=== PATIENT | male | born 1965 | race Caucasian/White ===

== ENCOUNTER 2018-10-26 14:42 | Inpatient (IN) ==
[2018-10-26] MEDS ORDERED: TYLENOL PO ONE (15:06)
[2018-10-26 15:24] LABS: HEMATOCRIT 35.3 % (42.0-52.0); HEMOGLOBIN 12.8 g/dL (14.0-18.0); LYMPH% 9.2 % (20.5-51.1); MCH 27.1 PG (27-31); MCHC 36.3 g/dL (33-37); MCV 74.6 FL (81-99); MONO% 7.2 % (1.7-9.3); NEUT% 81.1 % (42.2-75.2); PLT 338 X1000 (130-400); RBC 4.73 XMIL (4.7-6.1); RDW 14.4 % (11.5-14.5)
[2018-10-26 15:25] LABS: BASO# 0.01 X1000 (0.0-0.2); BASO% 0.1 % (0.0-0.8); EOS# 0.14 X1000 (0.0-0.7); EOS% 1.9 % (0.0-10.0); IMM GRAN# 0.04 X1000 (0.0-0.04); IMM GRAN% 0.5 % (0.0-0.5); LYMPH# 0.69 X1000 (1.2-3.4); MONO# 0.54 X1000 (0.11-0.59); NEUT# 6.08 X1000 (1.4-6.5)
[2018-10-26 15:28] LABS: BILIRUBIN URINE 1+ (NEGATIVE); BLOOD URINE 4+ (NEGATIVE); CLARITY VERY CLOUDY (CLEAR); COLOR AMBER; KETONE URINE 1+(Small) mg/dL (NEGATIVE); LEUKOCYTES URINE 1+ (NEGATIVE); NITRITE URINE POSITIVE (NEGATIVE); PH URINE 6.5; PROTEIN URINE 2+(100 mg/dL) mg/dL (NEGATIVE); UROBILINOGEN URINE 1 mg/dL
[2018-10-26 15:36] LABS: CALCIUM 7.3 mg/dL (8.8-10.2); CREATININE 3.4 mg/dL (0.7-1.2); TOTAL BILIRUBIN 0.8 mg/dL (0.20-1.00); TOTAL PROTEIN 5.8 g/dL (6.3-8.3)
--- NOTE | 2018-10-26 15:41 | Diag Imaging Result Doc PS360 ---
EXAM: CHEST-1 VIEW 10/26/2018 HISTORY: sepsis TECHNIQUE: AP at 1540 COMMENT: There is a left pleural effusion which has decreased markedly in volume since the previous study of 10/21/2018. There is also less atelectasis or pneumonia and portions of the hemidiaphragm and left heart border are now visible. The right pleural effusion has also diminished as has the atelectasis in the right base. IMPRESSION: Improved pleural effusions and basilar atelectasis versus pneumonia. Electronically signed by Dano Chin 10/26/2018 3:39 PM
[2018-10-26 15:59] LABS: CK INDEX 0.7 (0.0-2.5); CK-MB 10.24 ng/mL (0.0-5.0)
[2018-10-26 16:04] LABS: INR 1.37; PROTIME 17.6 Seconds (11.0-16.0)
[2018-10-26 16:06] LABS: URINE BACTERIA 2+ /HFP; URINE EPITHELIAL CELLS >10 /HPF (<10); URINE RBC 20-40 /HPF (<10); URINE YEAST NONE SEEN /HPF
[2018-10-26 16:07] LABS: URINE CAST NONE SEEN /LPF; URINE CRYSTAL NONE SEEN /HPF; URINE SOURCE CLEAN CATCH
--- NOTE | 2018-10-26 16:08 | PROVIDER DOCUMENTATION ---
This chart was entered by Kelly Bragg Scribe, acting as scribe for Enmanuel Mejia MD. HPI-General Adult - General Chief Complaint: SEPSIS ALERT - P Stated Complaint: hurting all over Time Seen by Provider: 10/26/18 15:00 Source: patient, family, EMS Allergies/Adverse Reactions: Patient Allergies Allergy/AdvReac Type Severity Reaction Status Date / Time ziprasidone [From Geodon] AdvReac NAUSEA/VOMI Verified 10/26/18 14:51 TING Home Medications: Home Medication List Medication Instructions Recorded Confirmed Last Taken Type Amlodipine [Norvasc] 10 mg PO DAILY 07/08/14 10/26/18 10/23/18 05:30 History Lisinopril 20 mg PO DAILY 07/08/14 10/26/18 10/23/18 05:30 History Omeprazole 20 mg PO AC 07/08/14 10/26/18 10/23/18 05:30 History SIMVAstatin [Zocor] 40 mg PO HS 07/08/14 10/26/18 10/23/18 05:30 History Clonidine [Catapres] 1 tab PO TID 10/23/18 10/26/18 10/23/18 05:30 History Aspirin EC 1 tab PO DAILY 10/26/18 10/26/18 Unknown History Hydralazine HCl 1 tab PO TID 10/26/18 10/26/18 Unknown History Levofloxacin 1 tab PO DAILY 10/26/18 10/26/18 Unknown History Metformin HCl 1 tab PO BID 10/26/18 10/26/18 Unknown History Metoprolol Succinate E.r. [Toprol 1 tab PO BID 10/26/18 10/26/18 Unknown History Xl] Sitagliptin Phosphate [Januvia] 1 tab PO DAILY 10/26/18 10/26/18 Unknown History - History of Present Illness -Gen Adult Nature of Presenting Problems: 53 y/o male presents to ED with cc of "pain all over" onset "a while ago." Pt reports he had pleural effusion with fluid removed on Sunday. Mother of pt states he had pleural effusion because he had pneumonia and never went to the doctor 2 months ago. Pt reports he was unable to get up today. Pt also complains of sores/lesions diffusely. Pt is alert and oriented. Location of Pain/Injury: reports: generalized Pain Radiation: reports: no radiation Quality of Pain: reports: aching Severity: reports: moderate, severe Onset/Duration: reports: unsure ("a while ago") Timing: reports: still present, getting worse Context/Activities at Onset: reports: none Modifying Factors: improves with: nothing Associated Symptoms: reports: rash, other ("pain all over") Similar Symptoms Previously?: No Recently seen or treated by another doctor?: Yes Review of Systems - Adult - REVIEW OF SYSTEMS - ADULT Constitutional: denies: chills, fever Eyes: reports: no symptoms reported Ears, Nose, Mouth & Throat: reports: no symptoms reported Cardiovascular: denies: chest pain, palpitations Respiratory: denies: cough, shortness of breath Gastrointestinal: denies: abdominal pain, diarrhea, nausea, vomiting Genitourinary: reports: no symptoms reported Musculoskeletal: reports: other ("pain all over"). denies: back pain, joint pain Integumentary: reports: rash. denies: itching Neurological: denies: dizziness/vertigo, seizure Psychiatric: reports: no symptoms reported Endocrine: reports: no symptoms reported Hematologic/Lymphatic: reports: no symptoms reported Allergic/Immunologic: reports: no symptoms reported All Other Systems: Reviewed and Negative Past History - Adult - PAST MEDICAL HISTORY-ADULT Review of Records: reports: Old Records Reviewed, Nursing Assessment Review, Medications Reviewed Major Childhood Illnesses: reports: denies history Cardiovascular: reports: HTN, hyperlipidemia Neurological: reports: CVA Psychiatric: reports: psychiatric problems Endocrine/Immune: reports: Diabetes - PRIOR SURGERIES/PROCEDURES Surgical/Procedure History: reports: orthopedic (extremity) (R leg) - IMMUNIZATION STATUS Childhood Immunizations: See Nurse Assessment Flu Vaccine: See Nurse Assessment - FAMILY HISTORY Family History: reviewed, not pertinent - SOCIAL HISTORY Smoking: less than 1 pack/day Provider spent 3-5 mins advising pt. on dangers of tobacco.: Discussed manners to quit use, and f/u contacts for add'l counseling. Substance Use: none/never Alcohol Use Frequency: never Living Situation: family Physical Exam-General - PHYSICAL EXAM-ADULT Initial Vital Signs Reviewed: Yes (nasal cannula in place) - CONSTITUTIONAL General Appearance: appears well, alert, no apparent distress - EYES Eyes: PERRL/EOMI, pink conjunctivae - HEAD, EARS, NOSE, MOUTH & THROAT HENMT: normocephalic/atraumatic, moist mucous membranes, normal ENT inspection - NECK Neck: non-tender, full range of motion - RESPIRATORY Respiratory: chest non-tender, lungs clear, normal breath sounds - CARDIOVASCULAR Cardiovascular: tachycardia - GASTROINTESTINAL (ABDOMEN) Abdominal Exam: normal bowel sounds, non tender, soft - MUSCULOSKELETAL Back Exam: normal inspection, no CVA tenderness, no vertebral tenderness Extremity: normal range of motion, non-tender, swelling (L hand/wrist) - SKIN Integumentary: normal color, warm/dry, swelling (L hand/wrist), other (purple sores to feet, hands, lips, tongue, back, abdomen, legs) - NEUROLOGIC Neurologic: grossly normal - PSYCHIATRIC Psych/Mental Status: normal mood/affect Progress - PLAN OF CARE/RESULTS Progress/Plan/Lab Results: Vital Signs - 8 hr 10/26/18 14:47 10/26/18 15:15 Temperature 101.6 F H Pulse Rate 142 H 141 H Respiratory Rate 21 35 H Blood Pressure 114/77 102/77 O2 Sat by Pulse Oximetry 96 94 L Laboratory Results - last 24 hr 10/26/18 10/26/18 10/26/18 15:00 15:00 15:00 WBC 7.50 RBC 4.73 Hgb 12.8 L Hct 35.3 L MCV 74.6 L MCH 27.1 MCHC 36.3 RDW Std Deviation 14.4 Plt Count 338 MPV 10.0 Immature Gran % (Auto) 0.5 Neut % (Auto) 81.1 H Lymph % (Auto) 9.2 L [place] % (Auto) 7.2 Eos % (Auto) 1.9 Baso % (Auto) 0.1 Immature Gran # (Auto) 0.04 Neut # (Auto) 6.08 Lymph # (Auto) 0.69 L [place] # (Auto) 0.54 Eos # (Auto) 0.14 Baso # (Auto) 0.01 PTT (Actin FS) 37.2 Sodium 129 L Potassium 5.0 Chloride 91 L Carbon Dioxide 16 L Anion Gap 22 BUN 35 H Creatinine 3.4 H Estimated GFR/1.73 m2 19 BUN/Creatinine Ratio 10 Glucose 135 H Calculated Osmolality 269 Calcium 7.3 L Total Bilirubin 0.80 AST 41 H ALT 12 Alkaline Phosphatase 45 Creatine Kinase 1503 H Troponin T Total Protein 5.8 L Albumin 3.0 L Globulin 3.0 Albumin/Globulin Ratio 1.0 Plasma Lactate Urine Color Urine Clarity Urine pH Ur Specific [place] Urine Protein Urine Ketones Urine Blood Urine Nitrite Urine Bilirubin Urine Urobilinogen Urine WBC Urine Glucose 10/26/18 10/26/18 10/26/18 15:00 15:00 15:05 WBC RBC Hgb Hct MCV MCH MCHC RDW Std Deviation Plt Count MPV Immature Gran % (Auto) Neut % (Auto) Lymph % (Auto) [place] % (Auto) Eos % (Auto) Baso % (Auto) Immature Gran # (Auto) Neut # (Auto) Lymph # (Auto) [place] # (Auto) Eos # (Auto) Baso # (Auto) PTT (Actin FS) Sodium Potassium Chloride Carbon Dioxide Anion Gap BUN Creatinine Estimated GFR/1.73 m2 BUN/Creatinine Ratio Glucose Calculated Osmolality Calcium Total Bilirubin AST ALT Alkaline Phosphatase Creatine Kinase Troponin T < 0.010 Total Protein Albumin Globulin Albumin/Globulin Ratio Plasma Lactate 2.8 H Urine Color YASHIRA Urine Clarity VERY CLOUDY A Urine pH 6.5 Ur Specific [place] 1.020 Urine Protein 2+(100 mg/dL) A Urine Ketones 1+(Small) A Urine Blood 4+ Urine Nitrite POSITIVE A Urine Bilirubin 1+ A Urine Urobilinogen 1 Urine WBC 1+ A Urine Glucose TRACE(50 mg/dL) A Orders Category Date Time Status Cardiac Monitoring DIRECTED Care 10/26/18 14:54 Active IV Insertion ORDERED Care 10/26/18 14:54 Completed Notify MD of + Sepsis Screen NOW Care 10/26/18 14:54 Active Notify Physician As Ordered Care 10/26/18 14:54 Active Oxygen Therapy- ED Nursing DIRECTED Care 10/26/18 15:16 Active CHEST-1 VIEW [RAD] Stat Exams 10/26/18 14:54 Completed ABG [RESP] Routine Lab 10/26/18 15:50 Ordered BLOOD CULTURE [BLDCUL] Stat Lab 10/26/18 15:00 Ordered CBC WITH DIFF [HEME] Stat Lab 10/26/18 15:00 Completed CK PROFILE [SP CHEM] Stat Lab 10/26/18 15:00 Results COMPREHENSIVE METABOLIC PANEL [CHEM] Stat Lab 10/26/18 15:00 Results LACTATE, PLASMA [CHEM] Lab 10/26/18 15:00 Completed LACTATE, PLASMA [CHEM] Lab 10/26/18 18:00 Uncollected LACTATE, PLASMA [CHEM] Lab 10/26/18 21:00 Uncollected PROTIME WITH INR [COAG] Stat Lab 10/26/18 15:02 Received PTT [COAG] Stat Lab 10/26/18 15:00 Completed TROPONIN T Stat Lab 10/26/18 15:[address] W/POSS RFLX CULT [URINALYSIS] Stat Lab 10/26/18 15:05 Results Acetaminophen [Tylenol] Med 10/26/18 15:06 Discontinued 1,000 mg PO NOW ONE Oxygen Device Stat Oth 10/26/18 14:54 Active EKG [EKG] Stat Ther 10/26/18 15:04 Ordered Result Diagrams: 10/26/18 15:00 10/26/18 15:00 - EKG 1 Time of EKG reading by physician:: 14:50 EKG Read and Signed by:: Enmanuel Mejia EKG Interpretation (*Must complete 3 of following elements*): Normal Rate: 144 Rhythm: Sinus tachy [place]: normal QRS: normal MT Interval: normal ST Wave: normal - XRAY 1 XRAY Study: Chest Impression: See EMR Report ([facility] - [address] , [address] [address] [facility] - [address] [place] [address] Department of Imaging Patient: ASHLEY CASTELLANOS GENEADM Date: 10/26/18MR#: [id number] : 1965ADM Status: PRE ERAcct#: [id number] Age/Sex: 53/MRoom/Bed: Loc: P.ED Ordering Physician: Enmanuel Mejia MD Family Physician: Rajeev Machado MD Reason for Procedure: sepsis Signed EXAM: CHEST-1 VIEW 10/26/2018 HISTORY: sepsis TECHNIQUE: AP at 1540 COMMENT: There is a left pleural effusion which has decreased markedly in volume since the previous study of 10/21/2018. There is also less atelectasis or pneumonia and portions of the hemidiaphragm and left heart border are now visible. The right pleural effusion has also diminished as has the atelectasis in the right base. IMPRESSION: Improved pleural effusions and basilar atelectasis versus pneumonia. Electronically signed by Dano Chin 10/26/2018 3:39 PM 10/26/18 1539 Interpreting Physician: Dano Chin MD Dictated Date/Time: 10/26/18 1537 cc: Enmanuel Mejia MD; Rajeev Machado MD) - CT/MRI 1 CT Study: Thorax Impression: See EMR Report ([facility] - [address] [facility] [address] [address], [address], [place] [address] [facility] - [address] [place] [address] Department of Imaging Patient: ASHLEY CASTELLANOS GENEADM Date: 10/26/18#: [id number] : 1965ADM Status: REG ERAcct#: [id number] Age/Sex: 53/MRoom/Bed: Loc: P.ED Ordering Physician: Reza Simons MD Family Physician: Rajeev Machado MD Reason for Procedure: pna, pleural effusion Signed EXAM: CT THORAX W/O CONTRAST 10/26/2018 HISTORY: pna, pleural effusion TECHNIQUE: This exam was performed using automated exposure control, adjustment of mA or kV according to patient size, and/or use of iterative reconstruction technique. COMMENT: There are bilateral pleural effusions. There is a pericardial effusion which measures a centimeter in thickness anteriorly. The pericardial effusion is larger than it was on 10/23/2018, the pleural effusions have decreased in size particularly the left effusion. There is atelectasis in the left lower lobe. The possibility of pneumonia cannot be entirely excluded. There is minimal platelike atelectasis in the posterior right lower lobe. The regional skeleton and visualized portions of the abdomen are stable in appearance. IMPRESSION: Improved pleural effusions. Worsened pericardial effusion. Atelectasis versus pneumonia left lower lobe. Electronically signed by Dano Chin 10/26/2018 5:00 PM 10/09 1700 Interpreting Physician: Dano Chin MD Dictated Date/Time: 10/26/18 1658 cc: Reza Simons MD; Rajeev Machado MD) - CONSULTS/PCP/HOSPITALIST Notification #1 *Consult/PCP/Hospitalist*: Dr. Simons Time Discussed: 15:56 Reason/Comments: Pleural effusion; pneumonia; sepsis Consult Disposition: Admit Departure - Departure Date of Disposition Decision: 10/26/18 Time of Disposition Decision: 16:41 DIAGNOSIS: Pleural effusion, Rash, History of recent pneumonia, Febrile illness, Tobacco use UTI (urinary tract infection) Qualifiers: Urinary tract infection type: site unspecified Hematuria presence: with hematuria Qualified Code(s): N39.0 - Urinary tract infection, site not specified; R31.9 - Hematuria, unspecified COPD (chronic obstructive pulmonary disease) Qualifiers: COPD type: unspecified COPD Qualified Code(s): J44.9 - Chronic obstructive pul monary disease, unspecified CKD (chronic kidney disease) Qualifiers: Chronic kidney disease stage: unspecified stage Qualified Code(s): N18.9 - Chronic kidney disease, unspecified Schizophrenia Qualifiers: Schizophrenia type: unspecified Qualified Code(s): F20.9 - Schizophrenia, unspecified Disposition: ADMITTED INPATIENT 09 Certified Medical Emergency: Emergent Condition: Stable Referrals and Follow-Ups: Rajeev Machado MD [Primary Care Provider] - Discharge Education: Steps to Quit Smoking, [id number] - Critical Care Note This patient required my direct & personal management of CC.: No Attestation - Physician/ KARTHIKEYAN Attestation Patient care was provided by Advanced Practice Provider:: No The physician spent face to face time with patient:: Yes Advanced Practice Provider documentation review:: Supervising physician onsite and consulted in the evaluation and care of this patient. The physician did have a face to face encounter with the patient. This chart was documented by the indicated scribe, (Kelly Bragg, Link) and accurately reflects the services I performed and decisions made by me, Enmanuel Mejia MD, as attested by the provider's signature.
[2018-10-26 16:17] LABS: BE -5.2 mmoll (-3.0-3.0); BLOOD TYPE ARTERIAL; HCO3-(ACT) 20.8 mmoll (20.0-26.0); METHB 0.9 % (0.0-1.5); O2(CT) 15.5 mL/dL (15.0-23.0); O2HB 94.7 % (95.0-99.0); PCO2(98.6) 24 mmHg (35-45); PO2(98.6) 87 mmHg (60-100); SAMPLE BLOOD; SAO2 97.5 % (95.0-100.0); THB 11.6 g/dL (11.5-17.4); pH(98.6) 7.46 (7.35-7.45)
[2018-10-26 16:21] LABS: ALLEN TEST YES; MODALITY CANNULA
[2018-10-26] MEDS: NS 1,000 ML IV SCH ×2 (16:21→23:40)
[2018-10-26] MEDS: SOLU-MEDROL IV SCH ×2 (16:23→23:42)
[2018-10-26] MEDS: ZYVOX 600 MG/D5W 600 MG/300 ML IVPB IV SCH (16:29)
[2018-10-26] MEDS: ZOSYN 2.25 GM in NS 50 ML IV SCH ×2 (16:32→23:40)
--- NOTE | 2018-10-26 17:02 | Diag Imaging Result Doc PS360 ---
EXAM: CT THORAX W/O CONTRAST 10/26/2018 HISTORY: pna, pleural effusion TECHNIQUE: This exam was performed using automated exposure control, adjustment of mA or kV according to patient size, and/or use of iterative reconstruction technique. COMMENT: There are bilateral pleural effusions. There is a pericardial effusion which measures a centimeter in thickness anteriorly. The pericardial effusion is larger than it was on 10/23/2018, the pleural effusions have decreased in size particularly the left effusion. There is atelectasis in the left lower lobe. The possibility of pneumonia cannot be entirely excluded. There is minimal platelike atelectasis in the posterior right lower lobe. The regional skeleton and visualized portions of the abdomen are stable in appearance. IMPRESSION: Improved pleural effusions. Worsened pericardial effusion. Atelectasis versus pneumonia left lower lobe. Electronically signed by Dano Chin 10/26/2018 5:00 PM
--- NOTE | 2018-10-26 17:24 | EKG Report ---
Test Performed on : 10/26/2018 2:50:41 PM Test Reason : pain Blood Pressure : / mmHG Vent. Rate : 144 BPM Atrial Rate : 144 BPM P-R Int : 114 ms QRS Dur : 076 ms QT Int : 290 ms P-R-T Axes : 075 069 068 degrees QTc Int : 449 ms Sinus tachycardia. Otherwise normal ECG When compared with ECG of 11-JUL-2014 01:27, No significant change was found Unconfirmed Result
[2018-10-26] MEDS ORDERED: TYLENOL PO PRN (17:42)
[2018-10-26] MEDS ORDERED: ZOFRAN IV PRN (17:42)
[2018-10-26 17:57] LABS: UR CREAT RANDOM 224.6 mg/dL (14-26)
[2018-10-26 18:16] LABS: IRON SATURATION 9 %; TIBC 109 ug/dL; TOTAL IRON 10 ug/dL (53-167); UNBOUND IRON 99 ug/dL (112-346)
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
[2018-10-26 18:46] LABS: FREE T4 1.2 ng/dL (0.93-1.70); TSH 2.8 uIUmL (0.27-4.20)
[2018-10-26] MEDS: ATROVENT NEB INH SCH ×2 (19:42→23:20)
[2018-10-26] MEDS: MUCOMYST 20% INH SCH (19:42)
[2018-10-26] MEDS: HUMULIN R (PARKWAY) SUBQ SCH (20:29)
[2018-10-26] MEDS: LOPRESSOR PO SCH (20:29)
[2018-10-26] MEDS ORDERED: ZOCOR PO SCH (21:00)
[2018-10-26 21:32] LABS: D-DIMER > 20.00 ug/mLFEU (0.0-0.52)
[2018-10-27] MEDS: ATROVENT NEB INH SCH ×6 (03:32→23:13)
[2018-10-27] MEDS: ZOSYN 2.25 GM in NS 50 ML IV SCH ×4 (04:04→21:39)
[2018-10-27] MEDS: PRILOSEC PO SCH ×2 (05:07→06:11)
[2018-10-27] MEDS: ZYVOX 600 MG/D5W 600 MG/300 ML IVPB IV SCH ×2 (05:07→17:26)
[2018-10-27 06:08] LABS: INR 1.43; PROTIME 18.6 Seconds (11.0-16.0)
[2018-10-27 06:09] LABS: PTT 40.8 Seconds (22.3-41.8)
[2018-10-27] MEDS: NS 1,000 ML IV SCH ×3 (06:11→21:39)
[2018-10-27] MEDS: HUMULIN R (PARKWAY) SUBQ SCH ×4 (06:11→21:39)
[2018-10-27 06:15] LABS: EOS# 0.15 X1000 (0.0-0.7); EOS% 2.9 % (0.0-10.0); HEMATOCRIT 26.7 % (42.0-52.0); HEMOGLOBIN 9.5 g/dL (14.0-18.0); IMM GRAN# 0.08 X1000 (0.0-0.04); IMM GRAN% 1.6 % (0.0-0.5); LYMPH# 0.35 X1000 (1.2-3.4); LYMPH% 6.9 % (20.5-51.1); MCH 26.8 PG (27-31); MCHC 35.6 g/dL (33-37); MCV 75.4 FL (81-99); MONO# 0.24 X1000 (0.11-0.59); MONO% 4.7 % (1.7-9.3); NEUT# 4.27 X1000 (1.4-6.5); NEUT% 83.9 % (42.2-75.2); PLT 227 X1000 (130-400); RBC 3.54 XMIL (4.7-6.1); RDW 14.3 % (11.5-14.5); WBC 5.09 X1000 (4.8-10.8)
[2018-10-27 06:42] LABS: ALB/GLOB RATIO 0.7; CALCIUM 6.2 mg/dL (8.8-10.2); CREATININE 3.1 mg/dL (0.7-1.2); TOTAL BILIRUBIN 0.42 mg/dL (0.20-1.00); TOTAL PROTEIN 4.9 g/dL (6.3-8.3)
[2018-10-27 06:43] LABS: MAGNESIUM 0.7 mg/dL (1.5-2.7)
[2018-10-27 07:17] LABS: ANISOCYTOSIS 1+; LYMPHS 17 % (21-51); MONO 4 % (1-9); SEGS 79 % (42-75)
[2018-10-27] MEDS: MUCOMYST 20% INH SCH ×2 (07:24→19:18)
[2018-10-27] MEDS ORDERED: CALCIUM GLUCONATE 2 GM in NS 100 ML IV ONE (08:00)
[2018-10-27] MEDS: ASPIRIN EC PO SCH (08:24)
[2018-10-27] MEDS: LOPRESSOR PO SCH ×2 (08:24→21:39)
[2018-10-27] MEDS: SOLU-MEDROL IV SCH ×2 (08:24→16:11)
[2018-10-27] MEDS ORDERED: MAGNESIUM SULFATE 4 GM/S.W.I. 4 GM/100 ML IVPB IV ONE (09:00)
--- NOTE | 2018-10-27 10:57 | Diag Imaging Result Doc PS360 ---
EXAM: US RENAL 2 (RETROPER) COMPLETE 10/27/2018 HISTORY: leah TECHNIQUE: Renal ultrasound COMMENT: The kidneys are markedly hyperechoic. There is no evidence of hydronephrosis or mass. There are jets seen in the urinary bladder on color Doppler. The bladder is otherwise unremarkable. The right kidney is 11.6 x 5 x 4.5 cm the left is 11.1 x 5.5 x 5.4 cm. IMPRESSION: No evidence of obstructive uropathy. The possibility of medical renal disease is suspected. Electronically signed by Dano Chin 10/27/2018 10:55 AM
--- NOTE | 2018-10-27 17:01 | PROGRESS NOTE ---
DATE: 10/27/2018 Patient was sent over here from [facility] yesterday. PCP: Rajeev Machado MD A 53-year-old white male with medical history of schizophrenia, hypertension, hyperlipidemia, diabetes mellitus type 2, and COPD. Very poor dentition. Most recently treated for pneumonia, also for left large pleural effusion. On 10/23/2018, sent by his primary care Dr. Machado, to have CT-guided left thoracentesis where 1.8 L of fluid was removed. Pleural fluid was sent for routine cultures. Did not show any growth at that time. He has been short of breath for 2 months. His mother brought him in. She is the principal caregiver and takes care of schizophrenia, and he lives with her. He has been struggling with breathing for a couple of months, but since his thoracentesis was having some blood, coughing up a little blood and threw up black colored emesis 2 or 3 days before this admission. None since that time. He has had fever and chills and dizziness, shortness of breath, and tachycardia. White count was normal. Noted some petechia and rashes on the backside, large bruise behind his right hip, swelling in the right arm, right leg, and he had a fall apparently a day before. Tender on the right upper and lower extremities as well and still feels like he is having hemoptysis. I see that he has been throwing up, but it appears to be dark color by mother's report. PAST MEDICAL HISTORY: 1. Hypertension. 2. Hyperlipidemia. 3. Diabetes mellitus type 2. 4. COPD. 5. Acute schizophrenia. 6. Very poor dentition. They were planning on starting pulling teeth. He has about 9 teeth that need to be pulled out, and they were going to start that this week. 7. Recent pneumonia, bilateral pleural effusions. So admitted for: 1. Sepsis, pneumonia, and possible urinary tract infection. White count was normal. Lactate was elevated. Fluid resuscitation for sepsis protocol was followed, but was diminished because of risk of his already present pleural effusion, and so they are going to follow up with CT of the chest. He is on Zosyn and Zyvox. 2. Pneumonia recently, bilateral pleural effusions. Removed 1.8 L from left lung on 10/23/2018. So follow up CT. 3. Purpura like rash. He has these risings noted on his legs and his back. He has a large bruise in the right hip above the buttock. I think the plan was to get venous ultrasound and check an MARY and hypercoagulable state and get IgG levels. 4. Acute kidney injury with rhabdomyolysis. Giving normal saline. Hydrate well. Follow his CKs. 5. Diabetes mellitus type 2. Continue to follow blood sugars. Put on sliding scale. 6. Hypertension. Follow blood pressures heat. He takes regular metoprolol 25 mg twice a day. They are going to hold the Catapres, hydralazine, lisinopril, Norvasc due to his acute kidney injury. 7. Hyperlipidemia. 8. Questionable hemoptysis versus hematemesis. Watch his blood count. He said around the time he had his thoracentesis this seemed to have stopped. He does have anemia. 9. Chronic anemia. 10. Urinary tract infection suspected, treating. 11. Deep venous thrombosis prophylaxis. 12. Acute kidney injury. LABORATORY DATA: Review of his labs. CBC on admission: White count 7500, hematocrit 35, platelet count 338,000, and today's white count was 5090, hematocrit 26, hemoglobin 9.5, platelet count 227,000. Sodium 132, potassium 4.0, chloride 97, BUN 43, creatinine 3.1. Creatinine when he came in was 3.4. Looking back, his creatinine was 1.1 in June of this year and 1.2 in October of this year. So feel like this is acute kidney injury. A variety of studies have been sent. I am going to ask Dr. Carbajal to follow. Dr. García is on the case already. cc: Eris Mendoza MD
[2018-10-27 18:30] LABS: RETIC% 0.96 % (0.8-2.1); RETIC-HE 24.1 PG (28.2-36.6)
--- NOTE | 2018-10-27 18:45 | Diag Imaging Result Doc PS360 ---
EXAM: CHEST-2 VIEWS 10/27/2018 HISTORY: effusion TECHNIQUE: PA and lateral chest COMMENT: There are bilateral effusions left greater than right. The quantity of fluid on both sides appears greater than on 10/26/2018. There is increased atelectasis or pneumonia in the left lower lobe. The inspiration is less optimal. IMPRESSION: Worsened bilateral effusions. Electronically signed by Dano Chin 10/27/2018 6:42 PM
--- NOTE | 2018-10-27 21:08 | PULMONOLOGY CONSULTATION ---
DATE: 10/27/2018 REQUESTING PHYSICIAN: Dr. Simons. REASON FOR CONSULTATION: Pneumonia. HISTORY OF PRESENT ILLNESS: Mr. Newman is a 53-year-old white male who is a very difficult historian due to schizophrenia. His chart has been reviewed. The patient has had an illness which began approximately 2 months ago. The patient has had increasing shortness of breath and CT scan has revealed bilateral pleural effusions. The patient did undergo a CT-guided thoracentesis 10/23/2018. Initial fluid was exudative in character and negative for growth. Hopefully, cytology is pending. The patient has developed some cough or emesis with bloody secretions. He has had some fevers and chills and has developed bruising on the lower extremities, his back and buttocks. He presented to the emergency room due to generalized pain and shortness of breath. Review of his labs indicates he has developed a microcytic anemia. His D-dimer was greater than 20 and his fibrin level is elevated. He has developed new onset renal failure and his urinalysis indicates nitrates, ketones and he is spilling protein with 4+ blood. PAST MEDICAL HISTORY: 1. Chronic obstructive pulmonary disease. 2. Schizophrenia. 3. Hypertension. 4. Type 2 diabetes mellitus. 5. Dyslipidemia. 6. Poor dentition. 7. History of left leg fracture. SOCIAL HISTORY: The patient has been smoking since the age of 10. No alcohol or illicit drug use noted. He lives with his mother. FAMILY HISTORY: Positive for strokes, heart disease and diabetes. REVIEW OF SYSTEMS: Limited but is as noted in the HPI. PHYSICAL EXAMINATION: General: Reveals a chronically ill-appearing male with some bruising noted on his legs anteriorly. When he rolls over, he has significant bruising on his back and some apparent deep tissue injury over the spine. BP 132/76, heart rate 102, respiratory rate 16, oxygen saturation 100%. He was 101.6 degrees on presentation but has subsequently been afebrile. Oxygen saturation 100% on Venturi mask. HEENT: Pupils are equal and reactive. Oropharynx is clear. Neck: Supple Chest: Reveals diminished breath sounds bilaterally without wheezing or rhonchi. Cardiac: S1, S2. Abdomen: Soft. Extremities: Reveal some swelling of the right hand without cyanosis. The right arm is not significantly swollen. Skin: As noted in the HPI. Please see photographs in the chart. LABORATORIES: CT scan of the thorax is reviewed, reveals bilateral pleural effusions. The effusion on the left has decreased compared to prior CT scan 4 days ago but pericardial infusion has increased in size. Minimal atelectasis in the left base without definite mass identified. White blood count 5.09, hemoglobin 9.5, platelet count 225,000, sedimentation rate 70, reticulocyte count 0.096. INR 1.43, fibrinogen 707, D-dimer greater than 20, sodium 132, potassium 4.0, chloride 97, carbon dioxide 16, BUN 43, creatinine 3.1, calcium 6.2, magnesium 0.7. Arterial blood gas on 2 L per nasal cannula, pH 7.46, pCO2 of 24, PO2 of 87. IMPRESSION: 53-year-old with 1. Chronic obstructive pulmonary disease. 2. Acute hypoxemic respiratory failure. 3. Exudative pleural effusions. 4. Hemoptysis. 5. Microcytic anemia. 6. Purpuric rash. 7. Vasculitis. 8. Acute renal failure. DISCUSSION: This is a 53-year-old with complicated illness as outlined above. Etiology for his current presentation is not completely clear. The patient does not have specific etiology in the chest to explain current presentation. He does have an apparent vasculitis with purpura, elevated sedimentation rate, acute renal failure and marked increase in D-dimer. Etiology is currently being evaluated. This could represent a [place] vasculitis. The patient has been on hydralazine. His current presentation could also be related to a drug-induced lupus vasculitis. He has extensive labs ordered to evaluate him for connective tissue diseases, HIV, hypercoagulable workup, hepatitis. RECOMMENDATION: 1. Agree with current workup. 2. Agree with Nephrology consultation. 3. Recommend wound care consult. He is at risk for skin breakdown/ulceration over his spine where he has purpura along with a pressure area of concern. 4. Additional recommendations pending hospital course. cc: Chandler García MD
[2018-10-28] MEDS: SOLU-MEDROL IV SCH ×3 (01:05→16:05)
[2018-10-28] MEDS: ATROVENT NEB INH SCH ×6 (03:03→22:45)
[2018-10-28] MEDS: NS 1,000 ML IV SCH ×4 (04:38→18:01)
[2018-10-28] MEDS: ZOSYN 2.25 GM in NS 50 ML IV SCH ×5 (04:38→21:37)
[2018-10-28 05:44] LABS: EOS# 0.04 X1000 (0.0-0.7); EOS% 0.5 % (0.0-10.0); HEMOGLOBIN 9.4 g/dL (14.0-18.0); IMM GRAN# 0.09 X1000 (0.0-0.04); IMM GRAN% 1.1 % (0.0-0.5); LYMPH# 0.27 X1000 (1.2-3.4); LYMPH% 3.4 % (20.5-51.1); MCH 26.4 PG (27-31); MCHC 34.8 g/dL (33-37); MCV 75.8 FL (81-99); MONO# 0.41 X1000 (0.11-0.59); MONO% 5.2 % (1.7-9.3); MPV 9.9 FL (7.4-10.4); NEUT# 7.03 X1000 (1.4-6.5); NEUT% 89.8 % (42.2-75.2); PLT 265 X1000 (130-400); RBC 3.56 XMIL (4.7-6.1); RDW 14.3 % (11.5-14.5); WBC 7.84 X1000 (4.8-10.8)
[2018-10-28] MEDS: ZYVOX 600 MG/D5W 600 MG/300 ML IVPB IV SCH ×2 (06:03→16:06)
[2018-10-28] MEDS: PRILOSEC PO SCH (06:03)
[2018-10-28] MEDS: HUMULIN R (PARKWAY) SUBQ SCH ×3 (06:03→16:05)
[2018-10-28 06:08] LABS: ALB/GLOB RATIO 0.7; ALBUMIN 2.3 g/dL (3.5-5.0); CALCIUM 7.1 mg/dL (8.8-10.2); CREATININE 2.4 mg/dL (0.7-1.2); PHOSPHORUS 4.9 mg/dL (2.7-4.5); POTASSIUM 3.5 mmol/L (3.5-5.1); TOTAL BILIRUBIN 0.26 mg/dL (0.20-1.00); TOTAL PROTEIN 5.5 g/dL (6.3-8.3)
[2018-10-28 07:37] LABS: BANDS 4 % (0-1); LYMPHS 3 % (21-51); MONO 2 % (1-9); SEGS 90 % (42-75)
[2018-10-28] MEDS: MUCOMYST 20% INH SCH ×2 (07:56→19:13)
--- NOTE | 2018-10-28 07:59 | ECHO REPORT ---
ORDER DATE: 10/27/2018 INTERPRETING PHYSICIAN: Dr. Nj REQUESTING PHYSICIAN: CLINICAL INDICATIONS: This is a 53-year-old male with question of CHF, dyspnea. M-MODE MEASUREMENTS: Right ventricle: cm. Left ventricle end diastole: 4.5 cm. Left ventricle end systole: 2.9 cm. Posterior wall: 1.9 cm. Interventricular septum: 0.9 cm. Left atrium: 3.5 cm. Aortic root: 2.9 cm. SUMMARY OF 2-DIMENSIONAL IMAGIN. The study was somewhat difficult. Optison was added to optimize visualization of the endocardium. 2. The left ventricular function is normal. Ejection fraction was estimated to be in the range of 60% to 65%. There is no wall motion abnormality noted. 3. Right ventricle appears to be normal. 4. Aortic valve looks normal. Color flow mapping is unremarkable. 5. Mitral valve looks normal. Color flow mapping is unremarkable. 6. Pulse wave Doppler of mitral inflow shows mild reversal of the E and the A ratio. The ratio is 0.8. 7. Tissue Doppler of septal and lateral mitral annulus averages 9 cm. 8. The pulmonary venous flow is normal. 9. There is no diastolic dysfunction. 10.Tricuspid valve shows mild degree of regurgitation. 11.Pulmonary pressure is estimated at 30 mmHg. 12.Pulmonic valve is normal. Color flow mapping is unremarkable. 13.There is no pericardial effusion, masses or thrombus. CONCLUSIONS: In summary, this study shows: 1. Normal left ventricular systolic function. Optison was added to optimize visualization of endocardium. 2. Normal diastolic function. 3. No evidence of any significant valvular abnormality. 4. No pulmonary hypertension. Clinical correlation is recommended. cc: MD Liliya Lewis CRNP
[2018-10-28] MEDS: LOPRESSOR PO SCH ×2 (08:55→21:06)
[2018-10-28] MEDS: ASPIRIN EC PO SCH (08:55)
--- NOTE | 2018-10-28 10:02 | Diag Imaging Result Doc PS360 ---
EXAM: CHEST-2 VIEWS HISTORY: abnormal exam TECHNIQUE: Chest two views COMPARISON: 10/27/2018 FINDINGS: Poor inspiratory effort. There are small to moderate-sized bilateral pleural effusions similar to the prior study. There is bibasilar atelectasis. No cardiomegaly. No pulmonary edema. IMPRESSION: No interval improvement. Electronically signed by Adam Medina 10/28/2018 10:00 AM
--- NOTE | 2018-10-28 10:13 | PROGRESS NOTE ---
DATE: 10/28/2018 SUBJECTIVE: Mr. Newman says he feels a little better. He has purpuric lesions on his fingers, both hands, on his back, on his proximal thighs and it is suspicious for vasculitis. He has some whitish plaque on his gums, left side of his mouth, poor dentition. He was in the process of going to get some teeth pulled when he started feeling bad. OBJECTIVE: Temperature 98.1 degrees, pulse 112, respirations 28, blood pressure 141/72. Pupils are equal round. Lungs clear in all lung koenig. Cardiovascular: Regular rhythm and rate without murmur or S3. Abdomen: Soft. Skin: Warm and dry. DATA: Urine output 1300 mL. Blood sugars have been in the low 100s. ASSESSMENT AND PLAN: 1. Purpuric rash. Concerned about some type of vasculitic process with some pleural effusion in his lungs. No discrete pathology identified on CT scan. Dr. García is following. Underlying chronic obstructive pulmonary disease with acute hypoxemic respiratory failure, exudative pleural effusion, hemoptysis, macrocytic anemia. Studies are pending. 2. Acute renal failure. Creatinine this morning is 2.4, which is improved. It was 3.4 when he came in. That is encouraging. Dr. Carbajal has been consulted. 3. Diabetes mellitus type 2. Continue to follow sugars. 4. History of dyslipidemia. 5. History of schizophrenia. 6. Poor dentition. Aware. His mother reports that at present time she cannot take care of him in his condition, so we will look for options of rehab on discharge planning. REVIEW OF ORDERS: He is on Saphris, which is asenapine, 10 mg sublingual at bedtime. This is for his schizophrenia. He is on acetylcysteine breathing treatments, aspirin 81 mg a day, ipratropium bromide 0.5 mg inhalation q.4 hours, methylprednisone 60 mg IV q.8 hours, Lopressor 25 mg p.o. b.i.d., Prilosec 20 mg daily. He is getting normal saline at 150 mL/hour. He is on Zosyn 2.25 g IV q.6, linezolid 600 mg IV q.12 h. Received a dose of calcium gluconate 2 g yesterday and some magnesium yesterday as well. REVIEW OF LABS: Blood sugars 187, 170, 260. White count 7840, hematocrit 27, hemoglobin 9.4 which is stable, platelet count 265,000. Sedimentation rate is 70. Percent reticulocytes is 0.96. He will continue present treatment. Note he did have hypomagnesemia and this was at 0.7 and this was treated. Follow-up magnesium is 2.0 today. Mild elevation of transaminases with AST 147, ALT is 77, alkaline phosphatase 63. cc: Eris Mendoza MD
[2018-10-28 10:47] LABS: HEPATITIS PROFILE ACUTE SEE COMMENTS
[2018-10-28 17:21] LABS: URINE SOURCE VOIDED
[2018-10-28 17:26] LABS: HIV ANTIBODY SCREEN SEE COMMENTS
[2018-10-28 17:30] LABS: BILIRUBIN URINE NEGATIVE (NEGATIVE); BLOOD URINE LARGE (NEGATIVE); COLOR YELLOW; GLUCOSE URINE 500 mg/dL (NEGATIVE); KETONE URINE NEGATIVE (NEGATIVE); LEUKOCYTES URINE NEGATIVE (NEGATIVE); NITRITE URINE NEGATIVE (NEGATIVE); PH URINE 5.5; PROTEIN URINE 30 mg/dL (NEGATIVE); SP GRAVITY URINE 1.014; TURBIDITY URINE HAZY (CLEAR); UROBILINOGEN URINE NORMAL (NORMAL)
[2018-10-28 17:32] LABS: UR EPITHELIAL CELLS <10 /HPF (<10); URINE BACTERIA NEGATIVE /HPF; URINE RBC TNTC /HPF (<10); URINE WBC <10 /HPF (<10)
[2018-10-28 17:40] LABS: UR CREAT RANDOM 49.4 mg/dL (14-26)
--- NOTE | 2018-10-28 18:45 | NEPHROLOGY CONSULTATION ---
DATE: 10/28/2018 REASON FOR ADMISSION: Increased work of breathing with fever. REASON FOR CONSULT: Acute kidney injury. CONSULTING PHYSICIAN: Dr. Mendoza. HISTORY OF PRESENT ILLNESS: Mr. Newman is a 53-year-old white male, with a medical history of schizophrenia, who is cared for by his mother. He has recently seen Dr. Machado and had a CT-guided left thoracentesis with 1.8 L of fluid removed 2 weeks ago. His mother states that he has been weak ever since, has not been eating well for the past 2 months. He has chronic increased work of breathing, but since his thoracentesis, this has gotten worse. He has been coughing up blood- tinged mucus. She states that he has had coffee-ground material with emesis 2 to 3 days prior to his admission. He has experienced fever and chills with a high temperature of 102 degrees. He has a white count that is normal. He has petechiae and purpura type rash along his back with a large bruise behind the right hip. He has purpura below the left knee up into the left thigh and hip, right elbow, and some noted ischemic bruising to his hands, right greater than left. He is a poor historian. His mother is at his bedside and states just overall health has deteriorated in the past 2 weeks, but she has noticed it not doing well for 2 months. PAST MEDICAL HISTORY: 1. Hypertension. 2. Hyperlipidemia. 3. Diabetes mellitus type 2. 4. COPD. 5. Schizophrenia. 6. Poor dentition with dentist appointment for this Sunday. 7. Recent pneumonia, with bilateral pleural effusions and a thoracentesis. SURGICAL HISTORY: 1. 10/23/2018, CT-guided left thoracentesis, performed by Dr. Hunter, for 1.8 L removed; cultures negative, found in the computer. 2. Right leg fracture was repaired at the age of 10 with pins. SOCIAL HISTORY: He is a half pack a day smoker. Lives with his mother who is his permanent caregiver. Smoking since the age of 10. Denies alcohol or illicit drug use. He is disabled. FAMILY HISTORY: Mother's side of the family has diabetes, coronary artery disease, CVA. Father is unknown. 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 HOME MEDICATIONS: 1. Enteric-coated aspirin. 2. Catapres. 3. Hydralazine. 4. Januvia. 5. Levaquin. 6. Lisinopril. 7. Metformin. 8. Norvasc. 9. Omeprazole. 10. Metoprolol. 11. Simvastatin. REVIEW OF SYSTEMS: Negative for chest pain. Negative for increased work of breathing. Positive for cough. Negative for hematuria. Positive for hemoptysis and hematochezia. Positive for fever and chills. Positive for nausea and vomiting. Negative for diarrhea. VITAL SIGNS: The patient's most recent vital signs: Temperature 98.4 degrees, blood pressure 140/75, heart rate 107, respirations 17. He is on 2 L nasal cannula. Last recorded saturation 96%. He is at 3414 in with 875 out to void, plus incontinent to the bed pad. LABS: Sodium 134, potassium 3.5, chloride 96, CO2 19, BUN 44, creatinine 2.4, glucose 163. His anion gap is 19, calcium 7.1, phosphorus 4.9, albumin 2.3. White count 7.84, hemoglobin 9.4, hematocrit 27, platelet count 265,000. PHYSICAL EXAMINATION: General: This is a 53-year-old male. He is currently resting quietly in bed. He appears chronically ill. No acute distress is noted. HEENT: Normocephalic, atraumatic. Conjunctivae are pale. He has PERRL. Mucous membranes are dry. Dentition is poor. He has black sediment around his mouth. He has a whitened area to the left side of his tongue in 3 patched areas. He has a burned area to the bottom lip area that is currently healing. Neck: Supple. Trachea midline. No evidence of JVD. Cardiovascular: He is regular rate and rhythm. Tachycardic. No murmur or gallop. Lungs: Coarse breath sounds bilateral. He is currently on O2. Equal excursion. Abdomen: Soft, nontender. Positive bowel sounds. Genitourinary: Not inspected. Patient has been voiding. Urinal is at bedside, though incontinent to bed pad. Integumentary: Skin is warm and dry. Purpura type rash along his back, behind both legs. Bruised area to right hip, right elbow. Right finger has been injured in some way along with the left index finger. Neurological: Patient has fine tremors. Mother states this is chronic. ASSESSMENT AND PLAN: 1. Acute kidney injury. Patient has intravenous fluids that have continued to infuse normal saline at 150 mL an hour. BUN and creatinine have slowly responded with a creatinine down to 2.4. Adequate urine output has been documented along with patient being incontinent. Renal ultrasound has been completed on 2018, indicating the right kidney measuring 11.6, left measuring 11.1. No obstructive uropathy or hydronephrosis. The patient had urine electrolytes completed on the . The patient had a fractionated urea score of 0.18%. We agree with continuing his intravenous fluid resuscitation. No indications for further intervention at this time. We will recheck his urine electrolytes. Continue to monitor strict inputs and outputs. 2. Electrolytes and acid-base balance. This is acceptable. 3. Anemia. This is low, but stable. 4. Workup in regards with sepsis, pneumonia, with possible urinary tract infection, though blood cultures are negative. Urine culture is negative. The patient remains on renal dosed Zosyn and Zyvox. 5. Vasculitic rash. Patient has complements MARY, ANCA, glomerular basement membrane, SPEP, C protein, lupus inhibitor, homocystine, HIV, haptoglobin, and further workup in place per primary care. I would like to thank you for allowing us to follow with this patient. Dictated by DWAINE Reinoso for Odilon Carbajal MD Face to face encounter, data reviewed, discussed with Valentina Whitaker on 10/28/18. I agree with the above assessment and plan of care. cc: DWAINE Reinoso MD [facility]
--- NOTE | 2018-10-28 20:41 | PULMONOLOGY PROGRESS NOTE ---
DATE: 10/28/2018 SUBJECTIVE: The patient is awake, alert, and conversant. He is tolerating p.o. He reports he feels little better. OBJECTIVE: Vital signs: The patient has been afebrile for the last 24 hours. Blood pressure 143/74, heart rate 97, respiratory rate 19, oxygen saturation 96% on 2 L. HEENT: Pupils are equal and reactive. Oropharynx is clear. Neck: Is supple. Chest: Reveals diminished breath sounds at both lung bases. Cardiac exam: Increased rate. Regular rhythm. Abdomen: Is soft. Extremities: Reveal trace edema. The edema in the right hand appears to have decreased. Skin: Reveals generalized bruising as outlined on the HPI. LABORATORIES: White blood count 7.84, hemoglobin 9.4, platelet count 265,000. C3 and C4 within normal limits. RPR is nonreactive. Hepatitis panel is nonreactive. HIV1 and 2 are nonreactive. Chest x-ray is unchanged. C-reactive protein is markedly abnormal at 432. IMPRESSION: A 53-year-old with: 1. Chronic obstructive pulmonary disease. 2. Presumptive vasculitis. 3. Acute hypoxemic respiratory failure. 4. Exudative pleural effusions. 5. Microcytic anemia. 6. Hemoptysis. 7. Purpuric rash. PLAN: 1. Anticipate the need for immunosuppression. Awaiting results of his MARY and Modesta's antibody level. 2. Continue current treatment regimen. May need to decrease fluids tomorrow. 3. Await nephrology workup. 4. Additional recommendations pending hospital course. cc: Chandler García MD
[2018-10-28] MEDS: SAPHRIS SL SCH (21:06)
[2018-10-28] MEDS: HUMULIN R SUBQ SCH (21:37)
[2018-10-29] MEDS: SOLU-MEDROL IV SCH ×3 (00:10→16:37)
[2018-10-29] MEDS: NS 1,000 ML IV SCH ×4 (00:10→18:03)
[2018-10-29] MEDS: ATROVENT NEB INH SCH ×6 (03:03→23:36)
[2018-10-29] MEDS: ZYVOX 600 MG/D5W 600 MG/300 ML IVPB IV SCH ×2 (04:13→16:36)
[2018-10-29] MEDS: ZOSYN 2.25 GM in NS 50 ML IV SCH ×5 (04:13→21:32)
[2018-10-29] MEDS: HUMULIN R SUBQ SCH ×4 (06:25→21:31)
[2018-10-29] MEDS: PRILOSEC PO SCH (06:26)
[2018-10-29 06:59] LABS: HEMATOCRIT 27.7 % (42.0-52.0); HEMOGLOBIN 9.5 g/dL (14.0-18.0); MCH 26.4 PG (27-31); MCHC 34.3 g/dL (33-37); MCV 76.9 FL (81-99); MPV 10.1 FL (7.4-10.4); RBC 3.6 XMIL (4.7-6.1); RDW 14.7 % (11.5-14.5); WBC 10.31 X1000 (4.8-10.8)
[2018-10-29 07:23] LABS: ALBUMIN 2.5 g/dL (3.5-5.0); CALCIUM 7.6 mg/dL (8.8-10.2); CREATININE 1.5 mg/dL (0.7-1.2); PHOSPHORUS 3.8 mg/dL (2.7-4.5); POTASSIUM 3.6 mmol/L (3.5-5.1)
[2018-10-29] MEDS: MUCOMYST 20% INH SCH ×2 (07:58→19:38)
[2018-10-29] MEDS: ASPIRIN EC PO SCH (08:35)
[2018-10-29] MEDS: LOPRESSOR PO SCH ×2 (08:35→21:33)
[2018-10-29] MEDS ORDERED: LOPRESSOR PO ONE (11:54)
--- NOTE | 2018-10-29 12:38 | PROGRESS NOTE ---
DATE: 10/29/2018 INTERVAL HISTORY: No acute event overnight. SUBJECTIVE: He has been feeling well. His shortness of breath is better. He denies new complaints. I discussed with him about exam findings. I answered all of his questions. The patient denies any chest pain or shortness of breath. Denies any more nausea or vomiting. VITALS: Temperature 98.2 degrees, pulse 106, respiratory rate 24, and blood pressure 165/82. He is saturating 100% on 2 L nasal cannula. OBJECTIVE: General: He does not appear in any acute distress. No pallor. No cyanosis. No clubbing. No icterus. Oral cavity has poor dental hygiene what looks like oral candidiasis with some food particles as well. Lungs: Air entry bilaterally equal. No wheeze, rhonchi, crackles. Heart: S1 normal. No murmur or gallop. Abdomen: Soft, nontender. He has bilateral lower extremity especially ankle edema. Neurologic: He is alert and oriented x3. He has purpuric rash affecting right hand mid to lower back, bilateral gluteal region, and back of legs. MICROBIOLOGY: No positive data. The blood culture and urine culture have been negative. No new imaging. ASSESSMENT AND PLAN: 1. Respiratory distress on presentation due to bilateral pleural effusions and sepsis due to suspected left lower lobe pneumonia. Follow up urine antigens. Continue intravenous Zosyn, and intravenous linezolid. His outpatient thoracentesis on the left had exudative mononuclear etiology. His respiratory distress is better. I will decrease intravenous fluid rate. 2. Acute kidney injury, proteinuria and hematuria. He received IV contrast for CT thorax 3 days prior to presentation. Now, it is improving. Continue intravenous fluids at a lower rate with plan to stop it in the next 24 hours. Possibility of autoimmune glomerulonephritis remains. 3. Generalized purpuric non itching and non blanching rash with bilateral pleural effusions, pericardial effusions, acute kidney injury and upper respiratory tract infection symptoms prior to presentation. His HIV, hepatitis, and echocardiogram has been unremarkable. Follow up with antinuclear antibody and ANCA pathology. Continue intravenous steroids at current dose. 4. Essential hypertension. Increase metoprolol dose. 5. Disposition. My plan is to monitor the patient inside the hospital, have him get a physical therapy evaluation as we await pending blood culture results. Plan of care discussed with him. All of his questions have been answered. cc: Magnus Fraga MD [facility]
[2018-10-29] MEDS: MYCOSTATIN SUSP PO SCH ×2 (16:43→21:32)
--- NOTE | 2018-10-29 18:39 | NEPHROLOGY PROGRESS NOTE ---
DATE: 10/29/2018 TIME SEEN: 0750 SUBJECTIVE: Mr. Newman is resting quietly in bed, head of the bed is slightly elevated. States that he is feeling better, his mother is at his bedside. OBJECTIVE: His most recent vital signs temperature 98.2 degrees, blood pressure 162/79, heart rate 102, respirations 17, he is on 2 L nasal cannula, last recorded saturation 96%, he has had 3062 in, 1650 out to void with adult pad in place. LAB: Sodium 138, potassium 3.6, chloride 102, CO2 21, BUN 35, creatinine of 1.5, glucose is 207. His white count is 10.31, hemoglobin 9.5, hematocrit 27.7, platelet count of 316,000 noted with an anion gap of 21, calcium is 7.6, phosphorus 3.8, albumin is 2.5. The patient has a protein electrophoresis negative for monoclonal bands, patient has a protein C functional negative, protein S activity is low, antithrombin III is low, patient had a nonreactive RPR. Hepatitis panel was negative, complements are negative, he had a low IgG, elevated D- dimer greater than 20, fibrinogen of 707 resulted. PHYSICAL EXAM: This is a 53-year-old white male resting quietly in bed. He appears chronically ill, no acute distress.Skin: Warm and dry. HEENT: Normocephalic, atraumatic. Conjunctiva is pale, he has WILL. Mucous membranes are dry. Neck: Supple. Trachea midline. No evidence of JVD. Cardiovascular: Regular rate and rhythm. No murmur or gallop. Lungs: Have coarse breath sounds bilateral, equal excursion on room air. Abdomen: Soft, nontender. Positive bowel sounds. Genitourinary: Not inspected. Patient has an adult diaper that is in place. Voiding into urinal with some incontinence. Integument: Skin is warm and dry. Continues with purpura type rash along his back, both posterior legs, right elbow, right wrist, right hand pointer finger, index finger to the left. Neurologic: Continues with fine motor tremors. ASSESSMENT AND PLAN: 1. Acute kidney injury. The patient has received intravenous fluids. BUN and creatinine have slowly improved BUN of 35, creatinine down to 1.5. Adequate urine output documented of 1650+. No indications for intervention. 2. Electrolytes and acid-base balance, these are acceptable. 3. Anemia, this is low but stable. 4. Vasculitic rash. Patient continues to have some labs still pending, negative monoclonal bands. Followed by the primary care team. 5. Sepsis with pneumonia. This is followed by Pulmonology and primary care. Like to thank you for allowing us to follow with this patient. Dictated by DWAINE Reinoso for Odilon Carbajal MD Face to face encounter, data reviewed, discussed with Valentina Whitaker on 10/29/18. I agree with the above assessment and plan of care. cc: DWAINE Reinoso MD [facility]
[2018-10-29] MEDS: SAPHRIS SL SCH (21:32)
--- NOTE | 2018-10-29 21:54 | PULMONOLOGY PROGRESS NOTE ---
DATE: 10/29/2018 SUBJECTIVE: The patient is awake, alert, and conversant. He is without specific complaints. OBJECTIVE: Vital Signs: The patient has remained afebrile. Blood pressure 173/84, heart rate 94, respiratory rate 14, oxygen saturation 91% on 2 L per nasal cannula. HEENT: Pupils are equal and reactive. Oropharynx reveals multiple ulcers on the base of his tongue. Neck: Is supple. Chest: Reveals diminished breath sounds at both lung bases. Cardiac exam: Increased rate. Regular rhythm. Abdomen: Is soft. Skin: Lesions are essentially unchanged. LABORATORIES: Immunoglobulin levels reveal significant IgG deficiency at 460 mg/dL. HIV antibodies are negative. Vitamin B12 level is low at 150. MARY level, anti glomerular basement membrane antibody, and ANCA screen are pending. DISCUSSION: This is a 53-year-old with 1. Chronic obstructive pulmonary disease. 2. Vasculitis. 3. Acute hypoxemic respiratory failure. 4. Exudative pleural effusions. 5. Microcytic anemia with B12 deficiency. 6. Purpuric rash. 7. Minor hemoptysis. DISCUSSION: A complicated 53-year-old male as outlined above. Awaiting additional laboratory studies to help determine a unifying diagnosis. 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 He is also B12 deficient. His blood pressure has continued to climb with steroids and he might benefit from a diuretic trial pending results of chemistries and chest x-ray tomorrow. PLAN: 1. Continue current steroid regimen. 2. Follow up chest x-ray and laboratories tomorrow and consider a diuretic. 3. B12 replacement. 4. Immunoglobulin replacement. 5. Awaiting additional laboratory studies. cc: Chandler García MD
[2018-10-30] MEDS: SOLU-MEDROL IV SCH ×3 (01:50→16:34)
[2018-10-30] MEDS: ATROVENT NEB INH SCH ×6 (03:15→23:52)
[2018-10-30] MEDS: ZYVOX 600 MG/D5W 600 MG/300 ML IVPB IV SCH ×2 (04:26→17:09)
[2018-10-30] MEDS: ZOSYN 2.25 GM in NS 50 ML IV SCH ×4 (04:26→21:18)
[2018-10-30 05:36] LABS: HEMATOCRIT 30.2 % (42.0-52.0); HEMOGLOBIN 10.3 g/dL (14.0-18.0); MCH 26.7 PG (27-31); MCHC 34.1 g/dL (33-37); MCV 78.2 FL (81-99); RBC 3.86 XMIL (4.7-6.1); RDW 14.7 % (11.5-14.5); WBC 10.34 X1000 (4.8-10.8)
[2018-10-30 06:00] LABS: AGAP 13; ALBUMIN 2.6 g/dL (3.5-5.0); BUN 29 mg/dL (8-22); CALCIUM 7.6 mg/dL (8.8-10.2); CHLORIDE 100 mmol/L (98-107); COSMO 286; ESTIMATED GFR > 60; GLUCOSE 210 mg/dL (70-104); PHOSPHORUS 2.7 mg/dL (2.7-4.5); POTASSIUM 3.2 mmol/L (3.5-5.1); SODIUM 137 mmol/L (136-145); TCO2 24 mmol/L (25-35)
[2018-10-30] MEDS ORDERED: GAMUNEX-C 10% IV ONE (06:00)
[2018-10-30] MEDS: HUMULIN R SUBQ SCH ×4 (06:15→21:18)
[2018-10-30] MEDS: PRILOSEC PO SCH (06:16)
[2018-10-30] MEDS: MUCOMYST 20% INH SCH ×2 (07:30→19:20)
--- NOTE | 2018-10-30 07:34 | Diag Imaging Result Doc PS360 ---
EXAM: CHEST-2 VIEWS HISTORY: abnormal exam TECHNIQUE: Chest two views COMPARISON: 10/28/2018 FINDINGS: There are bilateral pleural effusions similar to the prior exam with basilar atelectasis. No cardiomegaly. Dense infiltrates have developed in the upper right lung. No other interval change. IMPRESSION: No interval improvement with development of right upper lobe pneumonia. Electronically signed by Adam Medina 10/30/2018 7:32 AM
[2018-10-30] MEDS: CYANOCOBALAMIN IM SCH (08:42)
[2018-10-30] MEDS: LOPRESSOR PO SCH ×2 (08:42→21:19)
[2018-10-30] MEDS: ASPIRIN EC PO SCH (08:42)
[2018-10-30] MEDS: MYCOSTATIN SUSP PO SCH ×4 (08:42→21:19)
[2018-10-30] MEDS ORDERED: APRESOLINE PO SCH (10:00)
[2018-10-30 10:07] LABS: URINE SOURCE CLEAN CATCH
[2018-10-30 10:12] LABS: BILIRUBIN URINE NEGATIVE (NEGATIVE); BLOOD URINE MODERATE (NEGATIVE); COLOR YELLOW; GLUCOSE URINE 1000 mg/dL (NEGATIVE); KETONE URINE NEGATIVE (NEGATIVE); LEUKOCYTES URINE NEGATIVE (NEGATIVE); NITRITE URINE NEGATIVE (NEGATIVE); PROTEIN URINE 100 mg/dL (NEGATIVE); SP GRAVITY URINE 1.011; TURBIDITY URINE CLEAR (CLEAR); UROBILINOGEN URINE NORMAL (NORMAL)
[2018-10-30 10:13] LABS: UR EPITHELIAL CELLS <10 /HPF (<10); URINE BACTERIA NEGATIVE /HPF; URINE RBC TNTC /HPF (<10); URINE WBC <10 /HPF (<10)
[2018-10-30] MEDS: KLOR-CON PO SCH ×2 (10:13→13:32)
[2018-10-30] MEDS: CATAPRES PO SCH ×3 (10:14→21:20)
[2018-10-30] MEDS: MAGNESIUM SULFATE 2 GM/S.W.I. 2 GM/50 ML IVPB IV SCH ×2 (10:21→13:29)
[2018-10-30] MEDS ORDERED: CATAPRES PO SCH (13:00)
[2018-10-30] MEDS ORDERED: LASIX IV ONE (13:16)
[2018-10-30] MEDS: NS 1,000 ML IV SCH (13:29)
--- NOTE | 2018-10-30 13:30 | PROGRESS NOTE ---
DATE: 10/30/2018 INTERVAL HISTORY: No acute events overnight. He has been hypertensive for which I have added his clonidine. Awaiting Nephrology recommendation about adding lisinopril. His hypokalemia and hypomagnesemia, currently being repleted. The patient's family is at bedside. The patient agrees to go to rehab. I discussed with him about lupus finding. They denied prior family history of lupus though to their knowledge. SUBJECTIVE: Patient denies any chest pain or shortness of breath. She has been feeling very weak. Temperature 97.7 degrees, pulse 99, respiratory rate 16, blood pressure 170/90, and saturating 97% on 2 L nasal cannula. PHYSICAL EXAMINATION: He currently is having bleeding from his tongue. This is likely because of his oral candidiasis lesions bleeding.Lungs: Air entry bilaterally equal. No wheeze, rhonchi, or crackles. Cardiovascular: S1, S2 normal. No murmur or gallop. Abdomen: Soft and nontender. Extremities: Bilateral ankle edema. Neurologic: He is alert and oriented x3. Skin: He has palpable purpuric rash affecting is right hand, mid to lower back, bilateral gluteal region, bilateral posterior aspects of legs, which looks like discoid lupus. MICROBIOLOGY: No positive data. LABORATORY: Labs are suggestive of microcytic anemia. Normal platelet count. His BMP suggestive of hypokalemia, improving acute kidney injury, hyperglycemia, hypomagnesemia, positive anti double stranded DNA and antinuclear antibody. C-reactive protein has significantly decreased. His iron studies in the past had low iron saturation, though very high ferritin. ASSESSMENT AND PLAN: 1. Respiratory distress due to bilateral pleural effusion and sepsis due to suspected left lower lobe pneumonia. Follow up with urine antigen. Continue intravenous Zosyn, and intravenous linezolid. Day 1 of antibiotic was 10/26/2018. My plan is to stop antibiotics tomorrow since his respiratory status has improved. 2. 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 This could indicate lupus. His HIV, hepatitis and echocardiogram have been unremarkable. Other immune workup is pending. Continue intravenous steroids at current dose. His C-reactive protein is decreasing, though he was on hydralazine. Overall, this sounds more like systemic lupus erythematosus. 3. Acute kidney injury, proteinuria, and hematuria with history of IV contrast 3 days prior to presentation, now improving. I will stop the intravenous fluids. I appreciate Nephrology recommendation about starting him on lisinopril for hypertension as well as proteinuria management. I will appreciate their recommendation if he would need a kidney biopsy in the future considering this could be membranous or proliferative lupus nephropathy. 4. Essential hypertension. Continue metoprolol. Add clonidine and add lisinopril as tolerated. 5. Disposition: Awaiting rehab bed. I would anticipate discharge in the next 24 to 48 hours depending on further pending blood work up. I will continue nystatin for oral candidiasis. Plan of care discussed with the patient and family at bedside. All of their questions have been answered. cc: Magnus Fraga MD
[2018-10-30] MEDS: LANTUS INSULIN SUBQ SCH (13:32)
[2018-10-30 13:59] LABS: UR CREAT RANDOM 28.2 mg/dL (14-26); UR PROT RANDOM 113.1 mg/dL
--- NOTE | 2018-10-30 14:27 | NEPHROLOGY PROGRESS NOTE ---
DATE: 10/30/2018 TIME SEEN: 0735 hours. SUBJECTIVE: Mr. Newman is resting quietly in bed. His mother is at his bedside. He is sitting up. States that he is feeling better. OBJECTIVE: His most recent vital signs, temperature 98.3 degrees, blood pressure 172/88, heart rate 94, respirations 19. He is on 2 L nasal cannula. Last recorded saturation is 90%. He has had 2174 in and he has had 3100 out to void. LABORATORY DATA: Sodium 137, potassium 3.2, chloride 100, CO2 of 24, BUN 29, creatinine 1, glucose 210, his anion gap is 13, calcium 7.6, phosphorus 2.7, albumin 2.6, white count 10.34, hemoglobin 10.3, hematocrit 30.2 with a platelet count of 303,000. PHYSICAL EXAMINATION: General: This is a 53-year-old white male resting quietly in bed. He appears in no acute distress. Skin: Warm and dry. HEENT: Normocephalic, atraumatic. Conjunctiva is pale pink. He has WILL. Mucous membranes are dry. Neck: Supple. Trachea midline. No evidence of JVD in the upright position. Cardiovascular: Regular rate and rhythm. He is without murmur or gallop. Lungs: Clear to auscultation bilaterally. Equal excursion on O2. Abdomen: Soft, nontender, positive bowel sounds. Genitourinary: Not inspected. Adequate urine out to void. Extremities: Have 1+ lower extremity edema. No clubbing or cyanosis. Integumentary: The patient's skin is warm and dry. Continues with purpura type rash along his back, both posterior legs, right elbow, right wrist, right hand, pointer finger, index finger to the left. These continue to appear less reddened and healing. Neurological: He is alert to person and to place. He does continue with fine tremors with movement to his hands. ASSESSMENT AND PLAN: Acute kidney injury. This has resolved. The patient is now off his intravenous fluids. His creatinine is 1 with a BUN of 29 with adequate urine output. His electrolytes have stabilized. No indications for intervention. The patient has returned to his baseline. Secondary to these findings, we will sign off and remain available during his hospital stay. I would like to thank you for allowing us to follow with this patient. Dictated by DWAINE Reinoso for Odilon Carbajal MD Face to face encounter, data reviewed, discussed with Valentina Whitaker on 10/30/18. I agree with the above assessment and plan of care. cc: DWAINE Reinoso MD [facility]
[2018-10-30] MEDS: SAPHRIS SL SCH (21:19)
--- NOTE | 2018-10-30 21:33 | PULMONOLOGY PROGRESS NOTE ---
DATE: 10/30/2018 SUBJECTIVE: The patient is awake, alert, and conversant. His mother is at the bedside. She reports he appears to be feeling better. He is eating better today than for over the last month. OBJECTIVE: The patient has been afebrile for the last 24 hours. Blood pressure 172/92, heart rate 99, respiratory rate 16, oxygen saturation 97% on 2 L per nasal cannula.HEENT: Pupils are equal and reactive. Oropharynx is clear. Neck: Supple. Chest: Decreased breath sounds of both lung bases. Cardiac exam: S1, S2. Abdomen: Soft. Extremities: Unchanged in dermatologic lesions. LABORATORY AND DIAGNOSTIC DATA: Chest x-ray reveals a focal infiltrate in the right upper lobe. Pleural effusions may have slightly decreased in size. C-reactive protein has decreased from 432 to 56 over the last 3 days. MARY screen is positive for double-stranded DNA and chromatin. Glomerular basement membrane antibody is negative. Phospholipid IgM antibody is positive at 73. Sodium is 137, potassium 3.7, chloride 100, bicarbonate 24, BUN 29, creatinine 1.0. IMPRESSION: A 53-year-old with: 1. Purpuric rash. 2. Vasculitis. 3. Acute hypoxemic respiratory failure. 4. Exudative pleural effusions. 5. Immunoglobulin G deficiency. 6. Macrocytic anemia with B12 deficiency. 7. Chronic obstructive pulmonary disease. 8. Minor hemoptysis. 9. Elevation in double-stranded DNA antibody and chromatin antibody. 10. Positive phospholipid IgM antibody. DISCUSSION: Interesting patient as outlined above. The patient has positive MARY's and positive anti-phospholipid antibodies. Both of these can be seen in a hydralazine-induced connective tissue illness. Hydralazine can also increase the ANCA antibodies, but this level is still pending. The patient overall feels better. His C-reactive protein has markedly decreased with discontinuing hydralazine and initiating steroids. At this juncture, I believe it would be reasonable to ask Rheumatology to help us sort out this complicated picture. RECOMMENDATIONS: 1. Continue current treatment. 2. Immunoglobulin replacement has been completed. 3. Continue vitamin B12 replacement. 4. Single diuretic dose to see if he will diurese. 5. Rheumatology evaluation as outlined above. cc: Chandler García MD
[2018-10-31] MEDS: SOLU-MEDROL IV SCH ×3 (00:45→18:05)
[2018-10-31] MEDS: ATROVENT NEB INH SCH ×6 (04:30→23:08)
[2018-10-31] MEDS: ZOSYN 2.25 GM in NS 50 ML IV SCH ×4 (04:48→21:40)
[2018-10-31] MEDS: ZYVOX 600 MG/D5W 600 MG/300 ML IVPB IV SCH ×2 (04:48→17:17)
[2018-10-31 05:34] LABS: HEMATOCRIT 27.3 % (42.0-52.0); HEMOGLOBIN 9.1 g/dL (14.0-18.0); MCH 26.4 PG (27-31); MCHC 33.3 g/dL (33-37); MCV 79.1 FL (81-99); MPV 9.8 FL (7.4-10.4); RBC 3.45 XMIL (4.7-6.1); RDW 14.5 % (11.5-14.5); WBC 8.52 X1000 (4.8-10.8)
[2018-10-31 05:51] LABS: AGAP 9; ALBUMIN 2.2 g/dL (3.5-5.0); BUN 31 mg/dL (8-22); CALCIUM 7.6 mg/dL (8.8-10.2); CHLORIDE 99 mmol/L (98-107); COSMO 278; CREATININE 1.1 mg/dL (0.7-1.2); ESTIMATED GFR > 60; GLUCOSE 161 mg/dL (70-104); PHOSPHORUS 2.3 mg/dL (2.7-4.5); POTASSIUM 3.6 mmol/L (3.5-5.1); SODIUM 134 mmol/L (136-145); TCO2 26 mmol/L (25-35)
[2018-10-31] MEDS: PRILOSEC PO SCH (06:14)
[2018-10-31] MEDS: HUMULIN R SUBQ SCH ×4 (06:14→21:41)
[2018-10-31] MEDS: MUCOMYST 20% INH SCH ×2 (07:30→19:54)
[2018-10-31] MEDS: CYANOCOBALAMIN IM SCH (08:16)
[2018-10-31] MEDS: CATAPRES PO SCH ×3 (08:16→17:17)
[2018-10-31] MEDS: ASPIRIN EC PO SCH (08:16)
[2018-10-31] MEDS: MYCOSTATIN SUSP PO SCH ×4 (08:17→21:40)
[2018-10-31] MEDS: LANTUS INSULIN SUBQ SCH (08:17)
[2018-10-31] MEDS: LOPRESSOR PO SCH ×2 (08:17→21:40)
--- NOTE | 2018-10-31 10:28 | Extremity Venous Study ---
EXAM: Venous U/S Right Leg HISTORY: swelling; pain TECHNIQUE: Right lower extremity venous Doppler ultrasound. Delayed interpretation due to abnormality with tracking. COMPARISON: None. FINDINGS: There is good flow and compressibility of the veins of the right lower extremity. No thrombus. IMPRESSION: No evidence of deep venous thrombosis in the right lower extremity. Electronically signed by Adam Medina 10/31/2018 10:25 AM
--- NOTE | 2018-10-31 11:54 | Extremity Venous Study ---
EXAM: Venous U/S Right Arm 10/26/2018 HISTORY: swelling; pain TECHNIQUE: Venous ultrasound of the right arm COMMENT: There is no evidence of deep venous thrombosis or superficial venous thrombosis in the arm. No abnormal fluid collections are demonstrated. There is normal color Doppler flow. IMPRESSION: No evidence of venous thrombosis. Electronically signed by Dano Chin 10/31/2018 11:52 AM
[2018-10-31 17:01] LABS: ANTINEUTROPHIL CYTOPLASMIC AB SEE COMMENTS; CYTOPLASMIC NEUTROPHILIC AB SEE COMMENTS
[2018-10-31] MEDS ORDERED: LANTUS INSULIN SUBQ ONE (17:25)
[2018-10-31] MEDS: PRINIVIL PO SCH (18:05)
[2018-10-31] MEDS ORDERED: LASIX IV ONE (19:01)
[2018-10-31] MEDS ORDERED: MISC. PHARMACY COMMUNICATION SCH (19:30)
--- NOTE | 2018-10-31 20:13 | PROGRESS NOTE ---
DATE: 10/31/2018 INTERVAL HISTORY: No acute events overnight. His antiphospholipid antibody is turning positive. SUBJECTIVE: He is feeling great. Denies any complaints. He does not have anymore tongue bleeding. Discussed about exam findings. Discussed about consulting rug inspector helper and ENT doctor. I answered all of his questions. He has been able to go to the bathroom with minimal help. PHYSICAL EXAMINATION: Temperature 98 degrees, pulse 72, respiratory rate 18, blood pressure 150/78. He is saturating 98% on room air.General: He does not appear in any acute distress. His oral candidiasis is decreased. He does have some oral tongue lesion in the lower aspect of his tongue, which I could not remove, which was bleeding yesterday. I will consult ENT for possible biopsy as it may look like a mass. Air entry bilaterally equal. No wheeze, rhonchi, crackles. S1, S2 normal. No murmur, rub, or gallop. Abdomen: Soft, nontender. He has bilateral ankle edema. He is alert and oriented x3. He has palpable purpuric ulcerative rash affecting his back, bilateral lower extremities on the posterior aspect, and gluteal region, which looks like discoid lupus. LABORATORY: Suggestive of microcytic anemia. Normal platelet count. His kidney function appeared to have stabilized. He does have hyperglycemia. His magnesium was 1.3 yesterday, which was repleted, and I am repeating his magnesium level tomorrow. His antidouble-stranded DNA antinuclear antibody, antiphospholipid antibody have turned positive. ASSESSMENT AND PLAN: 1. Respiratory distress due to bilateral pleural effusions and sepsis due to suspected left lower lobe pneumonia. He had exudative pleural fluid with mononuclear cells done outpatient. Day 1 of antibiotics was October 26. My plan is to stop antibiotics in 24 hours. 2. Palpable purpuric nonblanching rash suspicious of discoid lupus, bilateral pleural effusions, pericardial effusions, acute kidney injury on presentation with positive antinuclear antibody, antidouble-stranded DNA antibodies and antiphospholipid antibodies. Differential includes systemic lupus erythematosus versus drug-induced lupus. His ANCA are pending. Human immunodeficiency virus, hepatitis echocardiogram have been unremarkable. Decrease intravenous steroid since his inflammatory markers are showing downward trend. Continue to hold hydralazine. 3. Acute kidney injury, proteinuria, and hematuria, with history of intravenous contrast 3 days prior to presentation, now improving. This could be acute tubular necrosis versus autoimmune glomerulonephritis. Nephrology on board. 4. Steroid-induced essential hypertension and hyperglycemia. Continue metoprolol, add clonidine, and I will add his lisinopril considering his proteinuria. Continue sliding scale insulin and glargine at current dose. 5. Disposition. I will transfer patient to routine medical floor. I will await Rheumatology recommendation regarding his autoimmune disease, as well as ENT recommendation about his tongue lesions. Accordingly, I am anticipating discharge in the next 24 to 48 hours to rehab. Plan of care discussed with the patient and his family at bedside. All of their questions have been answered. cc: Magnus Fraga MD
[2018-10-31] MEDS: SAPHRIS SL SCH (21:40)
[2018-11-01] MEDS: HUMULIN R SUBQ SCH ×5 (00:02→21:09)
[2018-11-01] MEDS: ATROVENT NEB INH SCH ×4 (04:38→15:44)
[2018-11-01] MEDS: SOLU-MEDROL IV SCH (06:14)
[2018-11-01] MEDS: PRILOSEC PO SCH (06:15)
--- NOTE | 2018-11-01 07:29 | PULMONOLOGY PROGRESS NOTE ---
DATE: 10/31/2018 SUBJECTIVE: The patient is without new complaints. He is eating 100% of his meals. OBJECTIVE: Vital Signs: The patient has been afebrile for the last 24 hours. Blood pressure 154/78, heart rate 72, respiratory rate 18, and oxygen saturation 98% on 2 L per nasal cannula. HEENT: Pupils are equal and reactive. Oropharynx is clear. Neck: Supple. Lungs: Chest reveals decreased breath sounds left base. Cardiac: S1, S2. Abdomen: Soft. Extremities: Without the edema. Skin: Lesions appear to be healing. LABORATORIES: ANCA screen is p-ANCA/MPO antibody positive. Sodium 134, potassium 3.6, chloride 99, bicarbonate 26, BUN 31, and creatinine 1.1. IMPRESSION: A 53-year-old with 1. Hydralazine induced ANCA associated vasculitis. Typical laboratory findings in this disease process includes antibodies to double- stranded DNA, along with a positive MPO ANCA titer. 2. Respiratory failure 3. Pleural effusions 4. Purpuric rash 5. Acute renal insufficiency RECOMMENDATIONS: 1. List hydralazine as an allergy. 2. Consider transitioning patient to oral steroids. 3. Two-view chest x-ray tomorrow. cc: Chandler García MD [facility]
--- NOTE | 2018-11-01 07:35 | Diag Imaging Result Doc PS360 ---
EXAM: CHEST-2 VIEWS 11/01/2018 HISTORY: abnormal exam TECHNIQUE: PA and lateral chest COMMENT: There is a fairly large left pleural effusion and a smaller right pleural effusion. There is atelectasis versus pneumonia in both lower lobes particularly the left lower lobe. Compared to 10/30/2018 the opacities present in the right upper and lower lobes have improved considerably. IMPRESSION: Improved pneumonia on the right. Electronically signed by Dano Chin 11/01/2018 7:33 AM
[2018-11-01] MEDS: MUCOMYST 20% INH SCH ×2 (08:00→20:12)
[2018-11-01] MEDS: HUMALOG SUBQ SCH ×3 (08:07→18:12)
[2018-11-01 08:15] LABS: HEMATOCRIT 30.7 % (42.0-52.0); HEMOGLOBIN 10.4 g/dL (14.0-18.0); MCHC 33.9 g/dL (33-37); MCV 79.7 FL (81-99); MPV 9.9 FL (7.4-10.4); RBC 3.85 XMIL (4.7-6.1); RDW 14.5 % (11.5-14.5); WBC 8.47 X1000 (4.8-10.8)
[2018-11-01 08:23] LABS: HEMOGLOBIN A1C 5.4 % (4.8-6.0)
[2018-11-01 08:43] LABS: AGAP 13; ALBUMIN 2.5 g/dL (3.5-5.0); BUN 33 mg/dL (8-22); CALCIUM 8.1 mg/dL (8.8-10.2); CHLORIDE 95 mmol/L (98-107); COSMO 280; ESTIMATED GFR > 60; GLUCOSE 120 mg/dL (70-104); PHOSPHORUS 3.2 mg/dL (2.7-4.5); POTASSIUM 2.9 mmol/L (3.5-5.1); SODIUM 136 mmol/L (136-145); TCO2 28 mmol/L (25-35)
[2018-11-01 08:45] LABS: C REACTIVE PROT QUANT 14.83 mg/L (0.00-5.00); MAGNESIUM 1.2 mg/dL (1.5-2.7)
[2018-11-01] MEDS: CYANOCOBALAMIN IM SCH (10:03)
[2018-11-01] MEDS: CATAPRES PO SCH ×2 (10:04→18:14)
[2018-11-01] MEDS: LANTUS INSULIN SUBQ SCH (10:04)
[2018-11-01] MEDS: LOPRESSOR PO SCH ×2 (10:04→21:10)
[2018-11-01] MEDS: PRINIVIL PO SCH (10:04)
[2018-11-01] MEDS: MYCOSTATIN SUSP PO SCH ×4 (10:04→21:10)
[2018-11-01] MEDS: ASPIRIN EC PO SCH (10:04)
[2018-11-01] MEDS ORDERED: LASIX IV ONE (10:33)
[2018-11-01] MEDS: KLOR-CON PO SCH ×4 (12:48→21:10)
[2018-11-01] MEDS ORDERED: SILVER NITRATE APPLICATOR TOP PRN (14:55)
[2018-11-01] MEDS ORDERED: NEO-SYNEPHRINE 0.5% NASAL SPRAY NAS ONE (15:00)
[2018-11-01] MEDS ORDERED: PRINIVIL PO ONE (16:30)
[2018-11-01] MEDS ORDERED: PREDNISONE PO ONE (18:00)
[2018-11-01 18:07] LABS: ALB/GLOB RATIO 1.2; ALBUMIN 2.7 g/dL (3.5-5.0); DIRECT BILIRUBIN 0.1 mg/dL (0.00-0.20); TOTAL BILIRUBIN 0.25 mg/dL (0.20-1.00)
[2018-11-01] MEDS: MAGNESIUM SULFATE 2 GM/S.W.I. 2 GM/50 ML IVPB IV SCH ×2 (18:11→19:58)
[2018-11-01] MEDS: POTASSIUM CHLORIDE 20 MEQ/SWI 20 MEQ/100 ML IVPB IV SCH ×2 (18:12→21:09)
[2018-11-01] MEDS ORDERED: NS 250 ML ONE (20:27)
[2018-11-01] MEDS: SAPHRIS SL SCH (21:09)
--- NOTE | 2018-11-01 21:19 | NEPHROLOGY PROGRESS NOTE ---
DATE: 11/01/2018 SUBJECTIVE: Patient is sitting up in bed. No complaints. His ulcerations appear to be healing. OBJECTIVE: Vital Signs: Temperature 97.9 degrees, pulse 77, respiratory rate 20, blood pressure 145/79. Intake 480 mL, output 2.4 L. General: Middle-aged gentleman sitting up in bed. Awake and alert, in no acute distress. HEENT: Normocephalic, atraumatic. PERRL. Neck: Supple. No JVD. Cardiovascular: Regular rate and rhythm. Pulmonary: Clear bilaterally. Abdomen: Soft. Positive bowel sounds. Genitourinary: Not inspected. Extremities: No clubbing, cyanosis. Integumentary: Skin is warm and dry. He has a pruritic rash, scattered. LABORATORY DATA: Pending. ASSESSMENT AND PLAN: 1. Acute kidney injury. That has resolved. 2. Question of lupus, hydralazine induced. We are going to order additional labs as prefer not to biopsy a patient with normal kidney function at this time. We will try to order p-ANCA, anti-myeloperoxidase (MPO), plus anti-lactoferrin or anti-elastase antibodies, if we can obtain that to give us a more definitive diagnosis. 3. Continue to follow along otherwise in the hospital. Can be discharged at the discretion of the primary. We will follow in the office as well. Dictated by DWAINE Canales for Odilon Carbajal MD Face to face encounter, data reviewed, discussed with Aramis Francisco on 11/01/18. I agree with the above assessment and plan of care. cc: Odilon Carbajal MD [facility]
[2018-11-02] MEDS: HUMULIN R SUBQ SCH ×4 (06:18→20:10)
[2018-11-02] MEDS: HUMALOG SUBQ SCH ×3 (06:18→16:52)
[2018-11-02] MEDS: PRILOSEC PO SCH (06:19)
[2018-11-02 08:11] LABS: HEMATOCRIT 28.5 % (42.0-52.0); HEMOGLOBIN 9.5 g/dL (14.0-18.0); MCH 26.9 PG (27-31); MCHC 33.3 g/dL (33-37); MCV 80.7 FL (81-99); MPV 10.6 FL (7.4-10.4); RBC 3.53 XMIL (4.7-6.1); RDW 14.5 % (11.5-14.5); WBC 10.52 X1000 (4.8-10.8)
[2018-11-02 08:36] LABS: AGAP 10; ALBUMIN 2.5 g/dL (3.5-5.0); BUN 41 mg/dL (8-22); CALCIUM 8.2 mg/dL (8.8-10.2); CHLORIDE 98 mmol/L (98-107); COSMO 284; ESTIMATED GFR > 60; GLUCOSE 107 mg/dL (70-104); PHOSPHORUS 3.2 mg/dL (2.7-4.5); POTASSIUM 3.8 mmol/L (3.5-5.1); SODIUM 137 mmol/L (136-145); TCO2 29 mmol/L (25-35)
--- NOTE | 2018-11-02 08:42 | PROGRESS NOTE ---
DATE: 11/01/2018 INTERVAL HISTORY: No acute events overnight. The patient was seen by a supervisor joiners who had recommended continuing patient on prednisone. The patient also had ENT evaluation and silver nitrate application was recommended. Formal note evaluation is pending. SUBJECTIVE: Patient is currently having bleeding in his mouth. He is denying any new complaints. We discussed about exam findings, continuing him on steroids. I answered all of his questions. VITALS: Temperature 98.5 degrees, pulse 57, respiratory rate 18, blood pressure 160/74. He is saturating 98% on 1 L nasal cannula. PHYSICAL EXAMINATION: General: Does not appear in any acute distress. He has bleeding in his mouth, likely from the lesion he has on the undersurface of his tongue which looks like a mass. Lungs: Air entry bilaterally equal. No wheeze, rhonchi, crackles. Cardiovascular: S1, S2 normal. No murmur or gallop. Abdomen: Soft, nontender. He does have bilateral lower extremity edema. He is alert, oriented x3. He has palpable ulcerated purpuric rash affecting his back, bilateral lower extremities and gluteal region. LABS: Suggestive of normocytic anemia, normal platelet count, hypokalemia and hypomagnesemia which are currently being repleted, normal kidney function, hyperglycemia which is in acceptable range. Decreasing C-reactive protein. ASSESSMENT AND PLAN: 1. Acute respiratory distress and acute hypoxic respiratory failure due to bilateral pleural effusion and sepsis due to suspected left lower lobe pneumonia. He had exudative pleural fluid with mononuclear cells done on outpatient. He is now status post intravenous antibiotics which were stopped on 10/31/2018. He is breathing well on 1 to 2 L nasal cannula now. 2. Palpable nonblanching ulcerated purpuric rash, bilateral pleural effusions, pericardial effusion, positive antidouble stranded DNA antinuclear antibody with antiphospholipid antibody and positive ANCA peripheral type in the setting of lupus. I had discussion with the supervisor joiners and this could represent systemic lupus erythematosus. However, hydralazine induced lupus could not be totally ruled out pending histone Antibody. According to supervisor joiners patient should be on 40 mg of prednisone daily for at least 4 weeks and should have outpatient rheumatology evaluation after 4 weeks to decide about further steroid dosing as well as further management. He should avoid hydralazine, which has already been listed as his allergy. He continues to show improvement in his liver enzymes as well as inflammatory markers. 3. Acute kidney injury, proteinuria, hematuria with intravenous contrast 3 days prior to presentation, now improving, which could be acute tubular necrosis versus less likely lupus nephritis which improved after steroids. His kidney function has already improved. No further nephrology interventions. 4. Steroid induced essential hypertension and hyperglycemia. Continue metoprolol and increase the dose of clonidine and lisinopril. Continue glargine, mealtime insulin, and sliding scale insulin. His decrease steroid dose would help both his blood pressure and sugar. 5. Tongue mass. ENT has been consulted, pending formal note. He was already evaluated today and looks like was started on silver nitrate. DISPOSITION: Unfortunately, the patient could not be evaluated in time to be transferred to rehab today in [place], so likely patient will be discharged on Sunday. Plan of care discussed with the patient. All of his questions have been answered. cc: Magnus Fraga MD [facility]
[2018-11-02] MEDS ORDERED: PREDNISONE PO SCH ×2 (09:00)
[2018-11-02] MEDS: PRINIVIL PO SCH (09:08)
[2018-11-02] MEDS: PREDNISONE PO SCH (09:08)
[2018-11-02] MEDS: LOPRESSOR PO SCH ×2 (09:08→20:11)
[2018-11-02] MEDS: MYCOSTATIN SUSP PO SCH ×4 (09:08→20:11)
[2018-11-02] MEDS: CATAPRES PO SCH ×2 (09:08→15:19)
[2018-11-02] MEDS: CYANOCOBALAMIN IM SCH (09:08)
[2018-11-02] MEDS: ASPIRIN EC PO SCH (09:09)
[2018-11-02] MEDS: LANTUS INSULIN SUBQ SCH (09:09)
--- NOTE | 2018-11-02 09:17 | CONSULTATION ---
DATE OF CONSULTATION: 11/01/2018 I was asked to see this patient by the hospitalist service regarding tongue lesion. The patient was admitted for diagnosis of pneumonia, pleural effusion and during workup and evaluation was noted to have a tongue lesion. He has also had some hemoptysis or hematemesis. Past history also significant for hypertension, diabetes, COPD, and poor dentition with pending dental involving tooth extractions. PAST HISTORY: Reviewed. SOCIAL HISTORY: Reviewed. REVIEW OF SYSTEMS: Noted. PHYSICAL EXAMINATION: Constitutional: Well-nourished white male in no acute distress. HEENT: Nose clear anteriorly. Septum with mild deflection. Oral cavity pharynx: The patient has an exophytic lesion, left anterior tongue tip. Soft to palpation, broad-based, approximately 1.5 to 2 cm in width. It is nontender. Actually was tending to ooze minimally on its ventral surface at time of exam, which responded completely to Cliff-Synephrine on 4 x 4 gauze. Remainder of the tongue unremarkable, palpate soft. Neck: No significant adenopathy. 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 This was initially with very mild oozing on exam, which responded completely to Cliff-Synephrine on 4 x 4 gauze with no further bleeding. PLAN: We think this is probably fibroma as resultant trauma from biting his tongue or abrasion on teeth. At this point I would recommend general anesthetic and excision with current pulmonary status. I really do not believe any intervention is going to be indicated unless we see a persistent problem with bleeding, though apparently there has been no history of that in the past. We will follow with you while in the hospital. cc: Davidson Ruffin MD
--- NOTE | 2018-11-02 11:10 | PULMONOLOGY PROGRESS NOTE ---
DATE: 11/01/2018 NADIA DICKENS MD.: The patient is awake, alert, and conversant. There is some blood on his sheets and in his oral cavity. Nursing reports he has been evaluated by ENT, who performed some work on his lingual ulcers. OBJECTIVE: Vital Signs: The patient has been afebrile for the last 24 hours. Blood pressure 123/74, heart rate 57, respiratory rate 18, oxygen saturation 98% on 2 L nasal cannula. HEENT: Pupils are equal and reactive. Oropharynx is clear. Neck: Supple. Chest: Reveals decreased breath sounds left base. Cardiac: S1-S2. Abdomen: Soft. Extremities: Without edema. DIAGNOSTIC DATA: Chest x-ray reveals near clearing on the right with small effusion versus atelectasis on the left. White blood count 8.47, hemoglobin 10.4, platelet count 248,000. C- reactive protein has decreased to 14.83. Sodium 136, potassium 2.9, chloride 95, bicarbonate 29, BUN 33, creatinine 1.0. IMPRESSION: 53-year-old with: 1. Hydralazine induced vasculitis. 2. Pleural effusions. 3. Acute hypoxemic respiratory failure. 4. Immunoglobulin deficiency. 5. Microcytic anemia with B12 deficiency. 6. Chronic obstructive pulmonary disease. 7. Oral ulcer disease. DISCUSSION: This is a 53-year-old with problems outlined above. Radiographically, he continues to improve. His C-reactive protein continues to decline. RECOMMENDATIONS: 1. Continue oral care per ENT. 2. Avoid hydralazine. 3. I agree with transitioning to oral steroids. 4. Steroid taper over 4 to 6 weeks with monitoring of C-reactive protein. cc: Chandler García MD [facility]
[2018-11-02] MEDS: MUCOMYST 20% INH SCH ×2 (11:16→21:19)
[2018-11-02] MEDS: DUONEB (A & A) INH SCH ×2 (16:24→21:19)
[2018-11-02] MEDS: SAPHRIS SL SCH (20:11)
--- NOTE | 2018-11-02 20:22 | PROGRESS NOTE ---
DATE: 11/02/2018 SUBJECTIVE: Patient reports feeling fine. Denies any fever or chills. Not complaining of any bleeding from his mouth. OBJECTIVE: Vital Signs: Temperature 97.6 degrees, heart rate 63, respiratory 14, blood pressure 110/60, O2 saturation 96% on room air. General: This is a [id number] 53-year-old male lying in bed in no acute distress. HEENT: The patient has a lesion on the underneath his tongue. Looks like a mass, but it is not bleeding. Neck: No JVD noted. No carotid bruits. No lymphadenopathy. No thyromegaly. Cardiovascular: S1-S2 heard. No murmurs, gallops, or rubs. Regular rate and rhythm. Respiratory: Clear bilaterally to auscultation. No work of breathing or using accessory muscles. Abdomen: Soft, nontender to palpation. Bowel sounds present. No organomegaly. Extremities: Bilateral lower extremity edema. Skin: The patient has a palpable ulcerated purpuric rash affecting his back bilaterally, and in the gluteal region as well. Neurological: Patient is alert and oriented x3. Moves 4 extremities. Speech is coherent. LABORATORY DATA: White cell count 10.52, hemoglobin 9.5, hematocrit 28.5, platelets 206. Normal BMP. Glucose 107. ASSESSMENT AND PLAN: 1. Acute respiratory distress and acute hypoxic respiratory failure due to bilateral pleural effusions. Sepsis due to suspected left lower pneumonia. That condition is resolved. Patient is not on any oxygen. Patient is not on any antibiotics. We will continue to monitor. 2. Palpable ulcerative purpuric rash with bilateral pleural effusions and pericardial effusion. This is most likely secondary to lupus. The patient has been seen by Rheumatology. The recommendation was to start prednisone 40 mg p.o. Will keep him on that for at least for 4 weeks, and then the patient will be seen by Rheumatology as an outpatient. Anti-histone antibodies are positive, so the patient probably also had hydralazine-induced lupus. 3. Acute kidney injury, resolved. 4. Steroid-induced essential hypertension and hyperglycemia, getting better. We will continue to monitor. 5. Lung mass. Patient evaluated by Otorhinolaryngology. They think this is a benign fibroma. No need for any surgery at this time. DISPOSITION: I think this patient is medically stable and ready to go to [facility] whenever they have a bed available. cc: Re[facility] Ortiz MD [facility]
[2018-11-03] MEDS: DUONEB (A & A) INH SCH ×4 (03:34→21:15)
[2018-11-03 05:43] LABS: HEMATOCRIT 24.8 % (42.0-52.0); HEMOGLOBIN 8.1 g/dL (14.0-18.0); MCH 26.1 PG (27-31); MCHC 32.7 g/dL (33-37); MPV 9.6 FL (7.4-10.4); RBC 3.1 XMIL (4.7-6.1); RDW 14.5 % (11.5-14.5); WBC 13.18 X1000 (4.8-10.8)
[2018-11-03 06:00] LABS: AGAP 11; ALBUMIN 2.3 g/dL (3.5-5.0); BUN 30 mg/dL (8-22); CALCIUM 7.9 mg/dL (8.8-10.2); CHLORIDE 99 mmol/L (98-107); COSMO 282; ESTIMATED GFR > 60; GLUCOSE 138 mg/dL (70-104); PHOSPHORUS 3.9 mg/dL (2.7-4.5); POTASSIUM 3.5 mmol/L (3.5-5.1); SODIUM 137 mmol/L (136-145); TCO2 27 mmol/L (25-35)
[2018-11-03] MEDS: HUMALOG SUBQ SCH ×3 (06:22→17:11)
[2018-11-03] MEDS: HUMULIN R SUBQ SCH ×4 (06:23→21:00)
[2018-11-03] MEDS: PRILOSEC PO SCH (06:23)
--- NOTE | 2018-11-03 08:10 | Diag Imaging Result Doc PS360 ---
EXAM: CHEST-2 VIEWS INDICATION: abnormal exam TECHNIQUE: 2 views COMPARISON: 11/01/2018 FINDINGS: The left pleural effusion appears smaller. However, this may be due to differences in positioning. The smaller right effusion is not clearly identified on current study. Adjacent atelectasis and/or infiltrate at the left lung base has improved somewhat. No new consolidation is identified. Cardiac silhouette is stable. IMPRESSION: Interval improvement as described. Electronically signed by Pramod Mcelroy 11/03/2018 8:07 AM
[2018-11-03] MEDS: LOPRESSOR PO SCH ×2 (09:27→20:59)
[2018-11-03] MEDS: CATAPRES PO SCH ×3 (09:27→17:10)
[2018-11-03] MEDS: ASPIRIN EC PO SCH (09:27)
[2018-11-03] MEDS: LANTUS INSULIN SUBQ SCH (09:28)
[2018-11-03] MEDS: MYCOSTATIN SUSP PO SCH ×4 (09:28→20:59)
[2018-11-03] MEDS: CYANOCOBALAMIN IM SCH (09:28)
[2018-11-03] MEDS: PREDNISONE PO SCH (09:28)
[2018-11-03] MEDS: PRINIVIL PO SCH (09:28)
[2018-11-03] MEDS: MUCOMYST 20% INH SCH ×2 (10:29→21:16)
[2018-11-03] MEDS ORDERED: LASIX IV ONE (11:42)
--- NOTE | 2018-11-03 13:47 | PROGRESS NOTE ---
DATE: 11/03/2018 SUBJECTIVE: Plans noted for transfer to rehab facility tomorrow. The patient denies tongue pain. He has had no further bleeding. OBJECTIVE: Oral cavity: Pharynx and anterior tongue with no active bleeding. Does have benign- appearing [*] lesion with appearance suggestive of fibroma. IMPRESSION: Benign-appearing lesion. No active bleeding. PLAN: I have no problem from an ENT standpoint with transfer. Would like to schedule repeat evaluation of the tongue in the office in 6 weeks. cc: Davidson Ruffin MD
--- NOTE | 2018-11-03 13:48 | PROGRESS NOTE ---
DATE: 11/03/2018 SUBJECTIVE: The patient reports feeling fine. No complaints at this time. OBJECTIVE: Vital Signs: Temperature 97.3 degrees, heart rate 74, respiratory rate 18, blood pressure 149/72, O2 saturation 97% on room air. General Examination: This is a 53-year-old, male, lying in bed, in no acute distress. HEENT: The patient has a small lesion underneath his tongue. Not bleeding. Neck: No JVD noted. No carotid bruit. Cardiovascular Examination: S1 and S2 heard. No murmurs, gallops, or rubs. Regular rate and rhythm. Respiratory Examination: Clear bilaterally to auscultation. No work of breathing or using accessory muscles. Abdomen: Soft, nontender to palpation. Bowel sounds present. No organomegaly. Extremities: Bilateral lower extremity edema. Skin: The patient has a palpable ulcerative purpuric rash affecting his back bilaterally and in the gluteal region as well. Neurological Examination: The patient is alert and oriented x3. Moves 4 extremities. Laboratory Data: Reviewed. ASSESSMENT AND PLAN: 1. Acute respiratory failure due to bilateral pleural effusion. That condition is completely resolved. The patient is not requiring any oxygen. 2. Palpable ulcerative purpuric rash with bilateral pleural effusion and pericardial effusion that is most likely secondary to lupus, also hydralazine-induced lupus as well. In any case, rheumatology has seen him and they recommended prednisone 40 mg by mouth daily. We will titrate down slowly. 3. Acute kidney injury, resolved. 4. Steroid-induced essential hypertension and hyperglycemia, better. 5. Tongue mass. As per ears, nose, and throat, that is a benign fibroma so no need for surgery at this time. 6. Disposition. At this time, patient is awaiting for a rehab bed. He is medically stable. cc: Reza Ortiz MD
[2018-11-03] MEDS: SAPHRIS SL SCH (20:59)
[2018-11-04] MEDS: DUONEB (A & A) INH SCH ×2 (04:36→10:35)
[2018-11-04] MEDS: HUMALOG SUBQ SCH ×2 (06:26→12:00)
[2018-11-04] MEDS: PRILOSEC PO SCH (06:27)
[2018-11-04] MEDS: HUMULIN R SUBQ SCH ×2 (06:27→12:00)
--- NOTE | 2018-11-04 07:03 | PULMONOLOGY PROGRESS NOTE ---
DATE: 11/03/2018 SUBJECTIVE: The patient is awake and alert. He reports he has a good appetite. He denies new skin lesions. He is without specific complaints. OBJECTIVE: Vital Signs: The patient has been afebrile for the last 24 hours. Blood pressure 124/59, heart rate 76, respiratory rate 20, oxygen saturation 96% on room air. HEENT: Pupils are equal and reactive. Oropharynx is clear. Neck: Supple. Chest: Good air entry bilaterally with slight decreased breath sounds, left base. Cardiac: S1, S2. Abdomen: Soft. Extremities: Without edema. Skin: He continues to have some skin lesions with an unstageable decubitus over the thoracic spine. IMAGING AND LABORATORY DATA: White blood count 13.18, hemoglobin 8.1, platelet count 262,000. Sodium 137, potassium 3.5, chloride 99, bicarbonate 27, BUN 30, creatinine 1.0. Chest x-ray reveals resolution of right-sided effusion, with decrease in the left-sided effusion and decreased infiltrate at the left base. IMPRESSION: A 49-year-old with: 1. Hydralazine-induced vasculitis. 2. Pleural effusions with improvement. 3. Immunoglobulin deficiency. 4. Microcytic anemia with B12 deficiency. 5. Chronic obstructive pulmonary disease. 6. 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 DISCUSSION: A 53-year-old with problems outlined above. He continues to improve on a daily basis. RECOMMENDATIONS: 1. Avoid hydralazine. This has been listed as an allergy. 2. Continue oral steroids, and taper as tolerated. This could be followed with a C-reactive protein. 3. The patient will need wound management at the areas of his vasculitic lesions. cc: Chandler Garcaí MD
[2018-11-04 08:04] VITALS: BP 146/74
[2018-11-04] MEDS: ASPIRIN EC PO SCH (09:11)
[2018-11-04] MEDS: MYCOSTATIN SUSP PO SCH ×2 (09:11→13:45)
[2018-11-04] MEDS: PREDNISONE PO SCH (09:11)
[2018-11-04] MEDS: CATAPRES PO SCH (09:12)
[2018-11-04] MEDS: PRINIVIL PO SCH (09:12)
[2018-11-04] MEDS: LOPRESSOR PO SCH (09:12)
[2018-11-04] MEDS: LANTUS INSULIN SUBQ SCH (09:34)
[2018-11-04] MEDS: MUCOMYST 20% INH SCH (10:35)
--- NOTE | 2018-11-04 11:50 | DISCHARGE SUMMARY ---
ADMISSION DATE: 10/26/2018 DISCHARGE DATE: 11/04/2018 ADMITTING DIAGNOSES: 1. Sepsis secondary to pneumonia. 2. Urinary tract infection. 3. Pneumonia with bilateral pleural effusions. 4. Acute kidney injury with rhabdomyolysis. 5. Diabetes, type 2. 6. Hypertension. 7. Hyperlipidemia. 8. Anemia. 9. Tobacco dependency. 10. Schizophrenia. DISCHARGE DIAGNOSES: 1. Lupus with purpuric rash. 2. Steroid-induced hypertension. 3. Steroid-induced hyperglycemia. 4. Benign fibroma, tongue mass. 5. Immunoglobulin deficiency. 6. Microcytic anemia with B12 deficiency. 7. Chronic obstructive pulmonary disease. 8. Pleural effusions with improvement. PROCEDURES AND FINDINGS: Chest CT on 10/26/2018 shows improved pleural effusions and a worsening pericardial effusion with atelectasis versus pneumonia in the left lower lobe. Venous ultrasounds of the right leg and the right arm done on 10/26/2018 are negative. Echocardiogram done on 10/26/2018 shows normal left ventricular systolic function, normal diastolic function, and an ejection fraction estimated to be in the range of 60% to 65% with no wall motion abnormality noted. Last chest x-ray done on 11/01/2018 shows the left pleural effusions appear to be smaller. Shows atelectasis or infiltrate at the left lung base have improved and no new consolidation is identified. Hepatitis panel was performed and was shown to be nonreactive. HIV panel was performed and showed to be nonreactive. RPR panel was done and showed to be nonreactive. Urine Legionella was performed and is negative. Streptococcus pneumoniae was negative. Bone marrow basement membrane IgG antibody was shown to be less than 0.2. antibodies are shown to be 2.8. Myeloperoxidase antibodies result was 2.0. Complement C3 is 123, complement C4 is 17, total complement is 59. MARY screen positive. The c-ANCA was negative, but the p-ANCA is positive. CONSULTS: Dr. Odilon Carbajal, Dr. Chandler García, Dr. Ruffin. HOSPITAL COURSE: Mr. Newman is a 53-year-old male with a history of schizophrenia, hypertension, hyperlipidemia, diabetes type 2, COPD, and very poor dentition, who was recently treated outpatient for pneumonia with Levaquin and a large left pleural effusion with thoracentesis on 10/23/2018 with removal of 1.8 L of fluid from the left lung. The patient stated he came into the ER, because he has been short of breath for at least 2 months. The patient's mother states that he has definitely been coughing more since his thoracentesis. The patient also admits to throwing up black-colored emesis. On admission, the patient has a petechia or purpura-type rash on the back side and a large bruise noted behind his right hip. The patient was admitted for sepsis secondary to outpatient pneumonia and urinary tract infection, he was febrile on admission, even though his white count was normal, his lactates were elevated. Fluid initiation was started. Therapy of Zosyn and Zyvox were started. The patient also was noted to have recent bilateral pleural effusions, although he recently had thoracentesis where they took off 1.8 L. The patient was noted with a purpuric rash. MARY levels and IgG levels were obtained. The patient was noted to have acute kidney injury and rhabdomyolysis with elevated CKs. Fluid hydration was started. The patient is known to have diabetes type 2. He was started on sliding scale insulin, and his A1c was 4.8 on admission, which has improved from 2015 where it was 7.1. The patient takes Januvia and metformin at home. Chest x-ray continued to improve with antibiotics. Lab results showed the patient positive for possible Lupus and Rheumatology was consulted. The bilateral pleural effusions, and pericardial effusion are most likely due secondary to his lupus. 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 Rheumatology recommended prednisone 40 mg by mouth and to titrate down slowly. His acute kidney injury has been resolved with fluid hydration. His steroid-induced essential hypertension and hyperglycemia are much better. The patient was noted to have a tongue mass that was bleeding. He was seen by Ear, Nose, and Throat doctor, Dr. Ruffin. Dr. Ruffin administered Cliff-Synephrine at the bedside, to the mass and the bleeding did stop. Upon re-evaluation, Dr. Ruffin said this is a benign fibroma and does not need any surgery at this time. We are going to discharge this patient to a rehabilitation facility today. He will continue to follow-up with Dr. Machado his primary care physician. DIAGNOSTIC STUDIES: White blood cell count 13.81, hemoglobin is 8.1, hematocrit 24.8, platelet count is 262,000. Sodium 137, potassium 3.5, chloride 99, carbon dioxide 27, anion gap 11, BUN is 30, creatinine 1, GFR is greater than 60, glucose is 138, calcium 7.9. Chest x-ray done on 11/01/2018 shows improvement of the left pleural effusion and smaller right effusion. Adjacent atelectasis or infiltrate at the left lung base has improved somewhat. No new consolidation is identified. DISCHARGE MEDICATION: Saphris 10 mg sublingual at bedtime. Aspirin 81 mg p.o. daily. Clonidine 0.2 mg p.o. t.i.d. Insulin glargine 15 units subcutaneous daily. Insulin Humalog 5 units subcutaneous a.c. Lisinopril 20 mg p.o. daily. Lopressor 50 mg p.o. b.i.d. Prilosec 20 mg p.o. q.a.m. Prednisone 40 mg p.o. daily. DISCHARGE DIET: Resume diabetic diet as tolerated per rehabilitation facility. DISCHARGE ACTIVITY: Resume normal activity per rehabilitation facility. DISCHARGE DISPOSITION: We will be sending the patient to a rehabilitation facility today. FOLLOW-UP: He will need to follow up with Dr. Machado, his primary care physician, as needed. REHABILITATION FACILITY: [facility]. Dictated by DWAINE Woodward for Reza Ortiz MD Addendum: Patient seen and examined by myself. Agree with DWAINE note. It reflects my assessment and plan. Patient is being discharged in stable condition. Will be seen by teletype telegrapher in 3 weeks. cc: MD Rajeev Morel MD [facility]
--- NOTE | 2018-11-04 13:01 | NEPHROLOGY PROGRESS NOTE ---
DATE: 11/04/2018 SUBJECTIVE: Patient is sitting up in bed. His states that she believes he will go to rehab today. OBJECTIVE: Vital Signs: Temperature 98.2 degrees, pulse 83, respiratory rate 18, blood pressure 172/82. Intake not measured. Output 1.8 L. General: This is an elderly gentleman sitting in the bed. Awake, alert, no acute distress. HEENT: Normocephalic, atraumatic. WILL. Mucous is moist. Neck: Supple without JVD. Cardiovascular: Regular rate and rhythm. Pulmonary: Clear bilaterally. Abdomen: Soft, positive bowel sounds. Genitourinary: Not inspected. Voiding. Extremities: No clubbing, cyanosis. Trace lower extremity edema. Integumentary: Continues with ulcerative appearing rash primarily back. LAB DATA: None today. Labs yesterday with a creatinine of 1.0. ASSESSMENT AND PLAN: 1. 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 Patient has been followed by Rheumatology at this point and they have adjusted his medication regimen. 2. Acute kidney injury is resolved. We will sign off. rg Dictated by DWAINE Canales for Odilon Carbajal MD Face to face encounter, data reviewed, discussed with Aramis Francisco on 11/04/18. I agree with the above assessment and plan of care. kaleb cc: Odilon Carbajal MD [facility]
[2018-11-05 11:42] LABS: ANTINEUTROPHIL CYTOPLASMIC AB SEE COMMENTS; CYTOPLASMIC NEUTROPHILIC AB SEE COMMENTS
== END 2018-11-04 14:16 | DRG 871 ==
LOC: SUPCPDRO → P.ED 14:42 → 3S 17:36 → SUATTDRO 17:36 → 3N 10-31 13:25
PROVIDERS: ATTEND Internal Medicine
CPT/HCPCS: 32557; 71010; 71020; 71045; 71046; 71250; 71270; 76770; 80053; 80069; 80074; 80076; 81001; 81240; 81241; 82042; 82378; 82550; 82553; 82570; 82607; 82728; 82746; 82784; 82805; 82948; 83010; 83036; 83090; 83516; 83520; 83540; 83550; 83605; 83615; 83735; 83986; 84100; 84155; 84156; 84157; 84165; 84300; 84439; 84443; 84484; 84540; 85025; 85027; 85045; 85300; 85301; 85302; 85306; 85379; 85384; 85610; 85612; 85613; 85651; 85730; 86038; 86039; 86140; 86147; 86160; 86162; 86235; 86255; 86334; 86592; 86701; 87040; 87070; 87088; 87389; 87449; 87899; 88112; 89051; 93005; 93306; 93971; 94640; 94760; 94761; 94799; 96365; 96366; 96368; 96375; 97116; 97162; 97530; 99285; 99999; A9270; C8929; J0610; J1561; J1815; J1940; J2020; J2543; J2930; J3420; J3475; J3480; J7030; J7050; J7506; J7512; Q9957; Q9967; XXXXX

== ENCOUNTER 2018-11-22 18:02 | Inpatient (IN) ==
[2018-11-22] MEDS ORDERED: PULMICORT INH ONE (18:37)
[2018-11-22] MEDS ORDERED: DUONEB (A & A) INH ONE (18:37)
[2018-11-22] MEDS ORDERED: SOLU-MEDROL IV ONE (18:40)
[2018-11-22 18:58] LABS: BASO# 0.02 X1000 (0.0-0.2); BASO% 0.1 % (0.0-0.8); EOS# 0.05 X1000 (0.0-0.7); EOS% 0.2 % (0.0-10.0); HEMATOCRIT 32.6 % (42.0-52.0); HEMOGLOBIN 10.8 g/dL (14.0-18.0); IMM GRAN# 0.32 X1000 (0.0-0.04); IMM GRAN% 1.4 % (0.0-0.5); LYMPH# 0.99 X1000 (1.2-3.4); LYMPH% 4.4 % (20.5-51.1); MCH 28.2 PG (27-31); MCHC 33.1 g/dL (33-37); MCV 85.1 FL (81-99); MONO# 3.93 X1000 (0.11-0.59); MONO% 17.6 % (1.7-9.3); MPV 8.7 FL (7.4-10.4); NEUT# 17.07 X1000 (1.4-6.5); NEUT% 76.3 % (42.2-75.2); PLT 395 X1000 (130-400); RBC 3.83 XMIL (4.7-6.1); RDW 17.8 % (11.5-14.5); WBC 22.38 X1000 (4.8-10.8)
--- NOTE | 2018-11-22 18:58 | Diag Imaging Result Doc PS360 ---
EXAM: CHEST-1 VIEW HISTORY: pna last month TECHNIQUE: Chest single view COMPARISON: 11/03/2018 FINDINGS: There is a moderate to large left-sided pleural effusion. This has increased in size since the prior exam. There is left atelectasis and there may be underlying pneumonia. The right lung is well expanded and clear. No pulmonary edema. IMPRESSION: Left pleural effusion with atelectasis and possibly underlying pneumonia. Electronically signed by Adam Medina 11/22/2018 6:55 PM
[2018-11-22 19:06] LABS: INR 1.18; PROTIME 15.1 Seconds (11.0-16.0); PTT 32.4 Seconds (22.3-41.8)
[2018-11-22 19:18] LABS: URINE SOURCE CLEAN CATCH
[2018-11-22 19:24] LABS: AGAP 13; ALB/GLOB RATIO 1.8; ALKALINE PHOSPHATASE 53 U/L (32-122); BUN 25 mg/dL (8-22); CALCIUM 7.6 mg/dL (8.8-10.2); CHLORIDE 93 mmol/L (98-107); CK PROFILE 25 U/L (24-204); COSMO 261; CREATININE 1.1 mg/dL (0.7-1.2); ESTIMATED GFR > 60; GLUCOSE 98 mg/dL (70-104); GOT 10 U/L (10-34); GPT 9 U/L (10-44); POTASSIUM 3.9 mmol/L (3.5-5.1); SODIUM 128 mmol/L (136-145); TCO2 22 mmol/L (25-35); TOTAL BILIRUBIN 0.49 mg/dL (0.20-1.00); TOTAL PROTEIN 4.7 g/dL (6.3-8.3)
[2018-11-22 19:28] LABS: BILIRUBIN URINE NEGATIVE (NEGATIVE); BLOOD URINE LARGE (NEGATIVE); COLOR YELLOW; GLUCOSE URINE NEGATIVE (NEGATIVE); KETONE URINE NEGATIVE (NEGATIVE); LEUKOCYTES URINE NEGATIVE (NEGATIVE); NITRITE URINE NEGATIVE (NEGATIVE); PH URINE 5.5; PROTEIN URINE 100 mg/dL (NEGATIVE); SP GRAVITY URINE 1.023; TURBIDITY URINE CLEAR (CLEAR); UROBILINOGEN URINE NORMAL (NORMAL)
[2018-11-22] MEDS ORDERED: NS 1,000 ML IV ONE ×2 (19:28)
[2018-11-22 19:30] LABS: UR EPITHELIAL CELLS <10 /HPF (<10); URINE BACTERIA NEGATIVE /HPF; URINE WBC <10 /HPF (<10)
[2018-11-22] MEDS ORDERED: NS 500 ML IV ONE (19:35)
[2018-11-22] MEDS ORDERED: ZOSYN 3.375 GM in NS 50 ML IV ONE (19:36)
[2018-11-22] MEDS ORDERED: LASIX IV ONE (20:58)
[2018-11-22] MEDS ORDERED: TYLENOL PO PRN (22:14)
[2018-11-22] MEDS ORDERED: ZOFRAN IV PRN (22:14)
[2018-11-22] MEDS ORDERED: LEVAQUIN 750 MG/D5W 750 MG/150 ML IVPB IV SCH (22:15)
--- NOTE | 2018-11-22 23:24 | HISTORY AND PHYSICAL ---
CHIEF COMPLAINT: Shortness of breath and fever. HISTORY OF PRESENT ILLNESS: Mr. Newman is a 53-year-old male with a medical history of hypertension, hyperlipidemia, diabetes mellitus type 2, COPD, pleural effusion, schizophrenia and recent pneumonia. He was in the hospital starting on the date of 10/26/2018. Believe he was discharged on 11/04/2018, went to rehab and I believe he returned home from rehab this Sunday. The mother at the bedside is the primary historian for the patient as he is a very poor historian related to his psychological illness. Apparently, he has been having increasing shortness of breath since coming home. He has had a cough with fever, a temperature maximum of 100 and he has been having thick sputum. Chest x-ray was obtained that showed a moderate to large left-sided pleural effusion. Could not exclude underlying pneumonia. Also had a noted leukocytosis on his laboratory data. He will be admitted for further evaluation and treatment. PAST MEDICAL HISTORY: See HPI. PREVIOUS SURGICAL HISTORY: CT-guided thoracentesis, right leg fracture with pin. SOCIAL HISTORY: Half a pack a day smoker. Smoking since age 10. No alcohol or illicit drugs. Lives with his mother. On disability. FAMILY HISTORY: Mother's side of the family, coronary artery disease, CVA, hypertension, hyperlipidemia. Father is unknown. ALLERGIES: Geodon making him feel lethargic. HOME MEDICATIONS: I attempted to go over medications with the family. They did not have a list. Order was placed for Nursing to reconcile home medications in the computer. These will be restarted when appropriate. REVIEW OF SYSTEMS: Fourteen-point review of systems conducted with the patient. Pertinent positives listed above in the HPI. All other systems reviewed and found to be negative. PHYSICAL EXAMINATION: VITAL SIGNS: Temperature 98.1, pulse 89, respirations 28-30, blood pressure 110/67, oxygen saturation 91% on room air. GENERAL: A 53-year-old male somewhat disheveled looking, able to answer some questions but mostly remained quiet during the interview. Mother at bedside did the majority of the talking. He is oriented to person and place as well as situation from what I could tell. HEENT: Head is atraumatic, normocephalic. Pupils equal, round, reactive to light. Extraocular eye movements intact. Sclerae are anicteric. Conjunctiva is pink. Oral mucosa is moist. Poor dentition noted. NECK: Supple. No JVD. No thyromegaly. Trachea is midline. No cervical lymphadenopathy. CARDIAC: S1, S2 appreciated. No murmurs, gallops or rubs. LUNGS: Decreased bilaterally left greater than right. Mildly tachypneic. No accessory muscle use. Scattered crepitations noted throughout the bilateral upper lung koenig. No rhonchi. No rales. Symmetric rise and fall with respirations. ABDOMEN: Soft, nondistended, nontender. Bowel sounds present all 4 quadrants, normoactive. No pulsatile mass. No organomegaly. EXTREMITIES: Two to three-plus pitting edema bilateral lower extremities. One- plus pedal pulses. NEUROLOGICAL: Oriented to person, place and somewhat to situation. Disoriented to time. Follows commands. No focal motor deficits. Otherwise nonfocal examination. DIAGNOSTIC DATA: Chest x-ray shows a large left pleural effusion, moderate to large left pleural effusion, infiltrate cannot be excluded. LABORATORY DATA: WBC 22.38. Hemoglobin 10.8. Hematocrit 32.6. Platelet count 395. Coagulation studies within normal limits. Sodium 128. Potassium 3.9. Chloride 93. Carbon dioxide 22. BUN 35. Creatinine 1.1. Glucose 98. Urine unremarkable. ASSESSMENT AND PLAN: 1. Probable community-acquired left lower lobe pneumonia. We will place the patient on Zosyn and Levaquin. Blood cultures are pending as well as sputum cultures. We will give antipyretics as needed for fever, DuoNebs. Consult Dr. García with pulmonology. 2. Large left pleural effusion. Patient has had a thoracentesis in the past. We will attempt to diurese with a dose of Lasix. This will help evaluate infiltrates tomorrow. Likely will need a CT scan, also quite possibly a CT-guided thoracentesis. Again, Dr. García has been consulted. Please see above. 3. Diabetes mellitus type 2. We will check hemoglobin A1c. Fingerstick blood sugars q.a.c. and at bedtime with sliding scale insulin. 4. Chronic renal insufficiency. Patient is at his baseline with a normal GFR. He appears to keep a slightly elevated BUN. We will continue to monitor. 5. Hypertension and hyperlipidemia. We will restart home medications when these are reconciled. 6. Tobacco abuse. Smoking cessation was gone over with the patient. Was unable to tell if the patient had any want to quit smoking at this time. Further recommendations per patient clinical course. Dictated by DWAINE Kim for Dante Quiroga MD cc: DWAINE Kim MD Primary care providers [facility]
[2018-11-23] MEDS: ZOSYN 3.375 GM in NS 50 ML IV SCH ×4 (01:46→21:37)
--- NOTE | 2018-11-23 01:52 | HISTORY AND PHYSICAL ---
ADDENDUM: Patient seen and examined by myself. Full note dictated and discussed with nurse practitioner. Patient has history of having pleurocentesis on the left. He presented with increased work of breathing, increased shortness of breath, and again is noted to have a large pleural effusion on the left. He has very minimal breath sounds on the left. Right has occasional rhonchi, no crackles. The patient does have a history of lupus. Continues to smoke. He has 2+ edema. We are going to admit him to the hospital. IV fluids will be held. We will place him on Lasix. We will continue to follow. Expect that he will need a pleurocentesis again. cc: Dante Quiroga MD
[2018-11-23 04:55] LABS: BASO# 0.01 X1000 (0.0-0.2); BASO% 0.1 % (0.0-0.8); EOS# 0.01 X1000 (0.0-0.7); EOS% 0.1 % (0.0-10.0); HEMATOCRIT 32.1 % (42.0-52.0); HEMOGLOBIN 10.5 g/dL (14.0-18.0); IMM GRAN% 0.7 % (0.0-0.5); LYMPH# 0.79 X1000 (1.2-3.4); LYMPH% 5.8 % (20.5-51.1); MCH 28.1 PG (27-31); MCHC 32.7 g/dL (33-37); MCV 85.8 FL (81-99); MONO# 1.05 X1000 (0.11-0.59); MONO% 7.6 % (1.7-9.3); MPV 8.9 FL (7.4-10.4); NEUT# 11.77 X1000 (1.4-6.5); NEUT% 85.7 % (42.2-75.2); PLT 341 X1000 (130-400); RBC 3.74 XMIL (4.7-6.1); RDW 17.7 % (11.5-14.5); WBC 13.73 X1000 (4.8-10.8)
[2018-11-23 05:27] LABS: CALCIUM 7.3 mg/dL (8.8-10.2); CREATININE 1.3 mg/dL (0.7-1.2); POTASSIUM 4.1 mmol/L (3.5-5.1)
[2018-11-23 05:28] LABS: MAGNESIUM 0.9 mg/dL (1.5-2.7)
[2018-11-23] MEDS ORDERED: MAGNESIUM SULFATE 4 GM/S.W.I. 4 GM/100 ML IVPB IV ONE (05:42)
[2018-11-23] MEDS: HUMALOG SUBQ SCH ×4 (06:27→21:36)
[2018-11-23] MEDS: LANTUS INSULIN SUBQ SCH (11:09)
[2018-11-23] MEDS: LASIX IV SCH ×2 (11:09→21:33)
--- NOTE | 2018-11-23 13:09 | PROGRESS NOTE ---
DATE: 11/23/2018 INTERVAL HISTORY: Mr. Newman was admitted for suspected sepsis and acute hypoxic respiratory failure with worsening left lower lobe left lung pleural effusion. Did not have any other acute overnight events. The patient is not sure if he was taking prednisone at home or not. Currently, patient appears in mild shortness of breath. VITAL SIGNS: Temperature 97.4 degrees, pulse 88, respiratory 20, blood pressure 138/97. He is saturating 97% on 3 L nasal cannula. PHYSICAL EXAMINATION: General: In mild distress because of shortness of breath. HEENT: Oral cavity is moist. He does have some retained food in his mouth. I could not see any tongue fibroma today. However, he is not complying with examination. Respiratory: Significantly decreased air entry on left hemithorax. No wheeze or rhonchi. Adequate air entry on right hemithorax. Cardiovascular: S1, S2 normal. Not tachycardic. No murmur, rub, or gallop. Abdomen: Soft, nontender. Extremity: No lower extremity edema. Neurological: He is alert, he is oriented to place and person and partly with the situation. He does have previous lesions of lupus, especially posterior aspect of the right heel and right leg, which are less prominent than before. LABORATORY DATA: Blood cultures are in lab. Urine legionella and streptococcal antigen are yet to be collected, and sputum culture with Gram stain has been ordered. Labs suggestive of leukocytosis with eosinophil count of 0.2, normocytic anemia, normal platelet count, improving hyponatremia, hypochloremia, acute kidney injury, hyperglycemia, significant hypomagnesemia without lactic acidosis. ASSESSMENT AND PLAN: 1. Sepsis and acute hypoxic respiratory failure due to left lower lobe pneumonia and left lung recurrent pleural effusion. Continue intravenous Zosyn. Start patient on intravenous Lasix and intravenous steroid. Follow up CT scan chest. Pulmonology on board. 2. Recent history of hydralazine-induced systemic lupus. I will start him on intravenous methylprednisolone. Follow up CRP and sedimentation rate. I will also have wound nurse consult since his rash appears to be slightly infected and may need care. 3. Acute kidney injury, likely in the setting of sepsis and Lasix. I will continue to monitor BMP. 4. Others. Continue amlodipine, metoprolol and clonidine for essential hypertension; insulin glargine and sliding scale insulin for history of insulin-dependent diabetes mellitus type 2. And his home medication for mood disorder. 5. Disposition: I will continue to monitor patient in [facility]. Plan of care discussed with him. I will keep the family in the loop. All of follow-up patient's questions have been answered. cc: Magnus Fraga MD MTDD
[2018-11-23] MEDS: CATAPRES PO SCH ×2 (14:12→16:45)
--- NOTE | 2018-11-23 19:16 | Diag Imaging Result Doc PS360 ---
EXAM: CT THORAX W/O CONTRAST HISTORY: SOB TECHNIQUE: CT of the chest without contrast COMPARISON: 10/26/2018 FINDINGS: There is a moderate to large loculated left-sided pleural effusion. There is a moderate sized right pleural effusion. No cardiomegaly. No thoracic aortic aneurysm. Atelectasis to both lungs. There are also infiltrates in the two left lobes. IMPRESSION: 1.Loculated large left pleural effusion 2.Moderate-sized right pleural effusion 3.Bilateral atelectasis as well as infiltrates in the lower left lung This exam was performed using automated exposure control, adjustment of mA or kV according to patient size, and/or use of iterative reconstruction technique. Electronically signed by Adam Medina 11/23/2018 7:13 PM
[2018-11-23] MEDS: SAPHRIS SL SCH (21:33)
[2018-11-23] MEDS: TOPROL XL PO SCH (21:33)
[2018-11-23] MEDS: ZOCOR PO SCH (21:33)
[2018-11-23] MEDS: SOLU-MEDROL IV SCH (21:33)
--- NOTE | 2018-11-23 21:50 | CONSULTATION ---
DATE OF CONSULTATION: 11/23/2018 CHIEF COMPLAINT: Shortness of breath. HISTORY OF PRESENT ILLNESS: This is a 53-year-old male with a complaint of fever, increasing shortness of breath and productive cough. He has a history of COPD, pleural effusion, and recent pneumonia. CT scan revealed loculated left pleural effusion, moderate-size right pleural effusion, bilateral atelectasis as well as infiltrates in the lower left lung. PAST MEDICAL HISTORY: Hypertension, hyperlipidemia, diabetes mellitus type 2, COPD, schizophrenia. PAST SURGICAL HISTORY: CT-guided thoracentesis, right leg fracture with pin. SOCIAL HISTORY: Iftc-runl-alr-day smoker. No alcohol or illicit drug use. Lives with his mother. On disability. FAMILY HISTORY: Mother's side of the family coronary artery disease, CVA, hypertension, hyperlipidemia. Unknown on father's side. ALLERGIES: Geodon. MEDICATIONS: Please see home reconciliation list. REVIEW OF SYSTEMS: A 10-point review of systems was obtained and the pertinence is listed within the HPI, otherwise noncontributory. PHYSICAL EXAMINATION: Vital signs: Temperature 97.7 degrees, pulse rate 92, respiratory rate 20, blood pressure 151/79, O2 saturation 100% with oxygen at 4 L.General: A 53-year-old male in no acute distress at the present time. Mother at bedside. HEENT: Head is atraumatic, normocephalic. Pupils equal, round and reactive to light. Moist oral mucosa. Neck supple. Trachea midline. Cardiac: S1 and S2 auscultated. No murmurs, gallops or rubs. Lungs: Decreased bilaterally. Nonlabored. Abdomen: Soft, nontender. Bowel sounds present in all 4 quadrants. Abdomen is distended. Extremities: Some edema bilaterally. Neurologic: Oriented to person and place. Follows commands. DIAGNOSTIC DATA: Chest x-ray shows moderate to large left-sided pleural effusion. This has increased in size since prior exam. There is left atelectasis, and there may be underlying pneumonia. LABORATORY DATA: White blood cells 13.73, red blood cells 3.74, hemoglobin 10.5, hematocrit 32.1. Sodium 135, potassium 4.1 chloride 97, carbon dioxide 20, BUN 29, creatinine 1.3, glucose 221, calcium 7.3. C-reactive protein 328.16. ProBNP 1196. ASSESSMENT AND PLAN: 1. Probable community-acquired left lower lobe pneumonia. Continue antibiotics as prescribed. 2. Large left pleural effusion. Continue with Lasix. 3. Diabetes mellitus type 2. Will monitor with fingerstick blood sugars with sliding scale insulin. 4. Chronic renal insufficiency. We will continue to monitor. 5. Tobacco abuse. Continue smoking cessation. Thank you for the courtesy of this consult. Dictated by DWAINE Rivera for Shira Wilcox MD cc: DWAINE Rivera MD
[2018-11-24] MEDS: ZOSYN 3.375 GM in NS 50 ML IV SCH ×4 (01:34→21:00)
[2018-11-24 05:57] LABS: HEMATOCRIT 29.4 % (42.0-52.0); HEMOGLOBIN 9.6 g/dL (14.0-18.0); IMM GRAN# 0.06 X1000 (0.0-0.04); IMM GRAN% 0.4 % (0.0-0.5); LYMPH# 0.44 X1000 (1.2-3.4); LYMPH% 3.1 % (20.5-51.1); MCH 28.1 PG (27-31); MCHC 32.7 g/dL (33-37); MONO# 1.18 X1000 (0.11-0.59); MONO% 8.4 % (1.7-9.3); MPV 8.9 FL (7.4-10.4); NEUT# 12.44 X1000 (1.4-6.5); NEUT% 88.1 % (42.2-75.2); PLT 363 X1000 (130-400); RBC 3.42 XMIL (4.7-6.1); RDW 17.8 % (11.5-14.5); WBC 14.12 X1000 (4.8-10.8)
[2018-11-24] MEDS: PRILOSEC PO SCH (06:13)
[2018-11-24] MEDS: HUMALOG SUBQ SCH ×4 (06:14→20:48)
[2018-11-24 06:19] LABS: AGAP 13; BUN 27 mg/dL (8-22); CALCIUM 7.4 mg/dL (8.8-10.2); CHLORIDE 97 mmol/L (98-107); COSMO 279; CREATININE 1.2 mg/dL (0.7-1.2); ESTIMATED GFR > 60; GLUCOSE 133 mg/dL (70-104); MAGNESIUM 1.7 mg/dL (1.5-2.7); SODIUM 136 mmol/L (136-145); TCO2 26 mmol/L (25-35)
[2018-11-24 08:15] LABS: ANISOCYTOSIS 1+; BANDS 4 % (0-1); HYPOCHROM 1+; LYMPHS 2 % (21-51); MONO 8 % (1-9); SEGS 86 % (42-75)
--- NOTE | 2018-11-24 09:01 | PROGRESS NOTE ---
DATE: 11/24/2018 INTERVAL HISTORY: No acute events overnight. His vitals were unremarkable. He states his shortness of breath seemed to be getting better. Apparently, he had not filled in prescription of prednisone after discharge from rehab, so it is possible that he was without steroids for at least 3 to 4 days. VITALS: Currently, temperature 97.7 degrees, pulse 95, respiratory rate 17, blood pressure 160/80. He is saturating 99% on 4 L nasal cannula. PHYSICAL EXAMINATION: General: Does not appear in any acute distress. Oral cavity is moist. Decreased air entry on entire left hemithorax. Adequate air entry on right hemithorax. S1, S2 normal. No murmur, rub, or gallop. Abdomen: Soft, nontender. No lower extremity edema. He is alert. He is oriented to place and person, and partly with the situation. He does have previous skin lesions of lupus on the posterior aspect of right heel, right leg, and center of the back. Many of the lesions have resolved. LABORATORY DATA: Labs suggestive of improving leukocytosis, normocytic anemia, normal platelet count, elevated BUN, normal magnesium level, a decreasing proBNP. MICROBIOLOGY: No data. IMAGING: No data except the chest CT which was performed yesterday which had suggested loculated large left-sided pleural effusion, moderate-sized right pleural effusion, and bilateral atelectasis, as well as infiltrate in the left lower lung. ASSESSMENT AND PLAN: 1. Sepsis and acute hypoxic respiratory failure due to left lower lobe pneumonia and left lung recurrent pleural effusion, now loculated. Continue intravenous Zosyn, intravenous Lasix, intravenous steroids. Pulmonology on board. Appreciate further recommendations about if he would need a chest tube placement in the future. 2. Hydralazine-induced systemic lupus. Continue him on intravenous methylprednisolone considering elevated inflammatory markers. Continue wound care for his skin ulcerated rash. 3. Others. His acute kidney injury on presentation is stable; continue amlodipine, metoprolol, and clonidine for essential hypertension; insulin glargine and sliding scale insulin for diabetes mellitus type 2; Saphris for his mood disorder; enoxaparin for DVT prophylaxis. 4. Disposition. I will continue to monitor patient inside the hospital. Plan of care discussed with him. His questions have been answered. cc: Magnus Fraga MD
[2018-11-24] MEDS: CATAPRES PO SCH ×3 (09:11→17:08)
[2018-11-24] MEDS: LANTUS INSULIN SUBQ SCH (09:11)
[2018-11-24] MEDS: NORVASC PO SCH (09:11)
[2018-11-24] MEDS: TOPROL XL PO SCH ×2 (09:12→21:00)
[2018-11-24] MEDS: ASPIRIN EC PO SCH (09:12)
[2018-11-24] MEDS: PRINIVIL PO SCH (09:12)
[2018-11-24] MEDS: LASIX IV SCH ×2 (09:12→21:00)
[2018-11-24] MEDS: SAPHRIS SL SCH (21:00)
[2018-11-24] MEDS: ZOCOR PO SCH (21:00)
[2018-11-24] MEDS: SOLU-MEDROL IV SCH (21:00)
[2018-11-25] MEDS: ZOSYN 3.375 GM in NS 50 ML IV SCH ×4 (02:17→21:41)
[2018-11-25] MEDS: HUMALOG SUBQ SCH ×6 (06:09→21:58)
[2018-11-25] MEDS: PRILOSEC PO SCH (06:28)
[2018-11-25] MEDS: LOVENOX SUBQ SCH (08:04)
[2018-11-25] MEDS: LANTUS INSULIN SUBQ SCH (08:07)
[2018-11-25] MEDS: PRINIVIL PO SCH (08:07)
[2018-11-25] MEDS: LASIX IV SCH ×2 (08:07→21:41)
[2018-11-25] MEDS: NORVASC PO SCH (08:07)
[2018-11-25] MEDS: CATAPRES PO SCH ×3 (08:07→16:21)
[2018-11-25] MEDS: TOPROL XL PO SCH ×2 (08:08→21:40)
[2018-11-25 09:17] LABS: PROTIME 13.3 Seconds (11.0-16.0); PTT 32.6 Seconds (22.3-41.8)
[2018-11-25] MEDS ORDERED: PRINIVIL PO ONE (09:28)
[2018-11-25] MEDS ORDERED: DUONEB (A & A) INH PRN (10:36)
[2018-11-25] MEDS: DUONEB (A & A) INH SCH ×4 (11:20→22:39)
[2018-11-25] MEDS ORDERED: HUMALOG SUBQ SCH ×3 (12:12→12:25)
--- NOTE | 2018-11-25 13:08 | PROGRESS NOTE ---
DATE: 11/25/2018 INTERVAL HISTORY: No acute events overnight. He is about to go for ultrasound-guided thoracenteses. His mother at bedside tells me that he was discharged 10 days prior to current admission and he has not taken any of his prescribed medicines since he did not receive his check, so he was not taking prednisone as prescribed. Currently he is denying any complaints. OBJECTIVE: Vital Signs: Temperature 97.7 degrees, pulse 89, respiratory rate 17, blood pressure 128/72, saturating 97% on 3 L nasal cannula. General: Not in any acute distress. HEENT: Oral cavity is moist. I could not appreciate any fibroma which was cauterized last admission. Lungs: He does have decreased air entry with crackles left hemithorax. Adequate air entry on right hemithorax. No wheeze or rhonchi. Cardiovascular: S1, S2 normal. No murmur, rub, or gallop. Abdomen: Soft, nontender. Extremities: No lower extremity edema. He still has previous skin lesions of lupus on posterior aspect of the right heel, right leg, center of the back. A lot of other lesions have resolved. LABORATORY DATA: No CBC or BMP. He does have sugar of 302. Input and output suggests he is -1 L so far today. ASSESSMENT AND PLAN: 1. Sepsis and acute hypoxic respiratory failure due to left lower lobe pneumonia and left lung recurrent pleural effusion, now loculated, likely because of noncompliance with prednisone. Continue intravenous Zosyn, intravenous Lasix and intravenous steroids. Follow up post ultrasound of thoracentesis fluid studies. 2. Hydralazine-induced systemic lupus. Continue current dose of intravenous methylprednisolone and wound care for skin ulcerated rash and follow-up repeat inflammatory markers in the next 24 hours. 3. Others. His acute kidney injury on presentation is stable; continue amlodipine, metoprolol and clonidine for essential hypertension, and increase the dose of lisinopril; continue insulin glargine and add mealtime insulin with sliding scale insulin for hyperglycemia, likely steroid induced, and diabetes mellitus type 2; his Saphris for history of mood disorder, and enoxaparin for DVT prophylaxis after thoracentesis. 4. Disposition. I will continue to monitor patient inside the hospital. Plan of care discussed with the patient and his mother at bedside. All of their questions have been satisfactorily answered. cc: Magnus Fraga MD
--- NOTE | 2018-11-25 14:20 | Diag Imaging Result Doc PS360 ---
EXAM: CHEST-2 VIEWS INDICATION: POST THORACENTESIS TECHNIQUE: 2 views COMPARISON: 11/22/2018 FINDINGS: There has been interval reduction in the size of the large left pleural fluid collection as a result of the thoracentesis performed just prior to this study. There is still a moderate amount of fluid that remains on the left despite 1500 mL being aspirated from the thoracentesis. There is a small right pleural effusion that has developed. The chest is stable, otherwise. IMPRESSION: 1.No evidence of pneumothorax status post left thoracentesis. 2.Interval development of a small right effusion. Electronically signed by Pramod Mcelroy 11/25/2018 2:18 PM
--- NOTE | 2018-11-25 14:48 | Diag Imaging Result Doc PS360 ---
EXAM: US THORACENTESIS W/IMAGE GUIDE INDICATION: Left therapeutic and diagnostic TECHNIQUE: COMPARISON: None. FINDINGS: Prior to the study, the left pleural space was scanned and showed a large pleural effusion with multiple thin internal septae indicating partial loculation. Risks, benefits, and alternatives were discussed with the patient and informed consent was obtained. The patient was prepped and draped in sterile fashion and local anesthesia was achieved with 1% lidocaine solution. Using ultrasound guidance, a large bore catheter was inserted into the left pleural space and 1.5 L of marlo serous fluid was aspirated. There were no known complications. A postprocedural chest radiograph showed no pneumothorax. IMPRESSION: Technically successful ultrasound-guided left thoracentesis. Electronically signed by Pramod Mcelroy 11/25/2018 2:46 PM
--- NOTE | 2018-11-25 16:16 | PROVIDER DOCUMENTATION ---
This chart was entered by Vira Gordon Scribe, acting as scribe for Eva Leigh MD. HPI-General Adult <Keith Coy - Last Filed: 11/22/18 21:08> - General Source: patient - History of Present Illness -Gen Adult Nature of Presenting Problems: Pt is 53/m presenting to ED w/ SOB and fever. Pt was just released for PNA. Pt has hx of COPD, denies having an at home treatments. Pt is current everyday smoker. hx of lupus and HTN, COPD. Location of Pain/Injury: reports: generalized Pain Radiation: reports: no radiation Quality of Pain: reports: none Severity: reports: mild Onset/Duration: reports: just prior to arrival Timing: reports: still present Context/Activities at Onset: reports: none Modifying Factors: improves with: nothing Associated Symptoms: reports: fever/chills, shortness of breath. denies: cough, nausea, vomiting Similar Symptoms Previously?: No Recently seen or treated by another doctor?: No <Eva Leigh - Last Filed: 11/22/18 21:11> - General Chief Complaint: SEPSIS ALERT - D Stated Complaint: FEVER, (JUST RELEASED FOR PNA) Time Seen by Provider: 11/22/18 18:30 Allergies/Adverse Reactions: Patient Allergies Allergy/AdvReac Type Severity Reaction Status Date / Time hydralazine AdvReac Intermediate SWELLING Verified 10/31/18 19:25 ziprasidone [From Geodon] AdvReac NAUSEA/VOMI Verified 10/26/18 14:51 TING Home Medications: Home Medication List Medication Instructions Recorded Confirmed Last Taken Type Lisinopril 20 mg PO DAILY 07/08/14 10/26/18 10/23/18 05:30 History Omeprazole 20 mg PO AC 07/08/14 10/26/18 10/23/18 05:30 History SIMVAstatin [Zocor] 40 mg PO HS 07/08/14 10/26/18 10/23/18 05:30 History Aspirin EC 1 tab PO DAILY 10/26/18 10/26/18 Unknown History Metformin HCl 1 tab PO BID 10/26/18 10/26/18 Unknown History Sitagliptin Phosphate [Januvia] 1 tab PO DAILY 10/26/18 10/26/18 Unknown History Asenapine Maleate [Saphris] 1 tab SUBLINGUAL QHS 10/27/18 10/27/18 Unknown History Amlodipine [Norvasc] 5 mg PO BID #60 tab 11/04/18 Unknown Rx Insulin Glargine [Lantus Insulin] 15 unit SUBQ DAILY #5 unit 11/04/18 Unknown Rx Metoprolol [Lopressor] 50 mg PO BID #60 tab 11/04/18 Unknown Rx Prednisone 2 tab PO DAILY #60 tab 11/04/18 Unknown Rx Review of Systems - Adult - REVIEW OF SYSTEMS - ADULT Constitutional: reports: fever. denies: chills Eyes: reports: no symptoms reported Ears, Nose, Mouth & Throat: reports: no symptoms reported Cardiovascular: reports: no symptoms reported Respiratory: reports: shortness of breath Gastrointestinal: denies: abdominal pain, nausea, vomiting Genitourinary: reports: no symptoms reported Musculoskeletal: reports: no symptoms reported Integumentary: reports: no symptoms reported Neurological: reports: no symptoms reported. denies: dizziness/vertigo, headache/migraines Psychiatric: reports: no symptoms reported Endocrine: reports: no symptoms reported Hematologic/Lymphatic: reports: no symptoms reported Allergic/Immunologic: reports: no symptoms reported All Other Systems: Reviewed and Negative <ReeseGenmonica Mohan - Last Filed: 11/22/18 21:11> Past History - Adult - PAST MEDICAL HISTORY-ADULT Review of Records: reports: Old Records Reviewed, Nursing Assessment Review, Medications Reviewed, Social history reviewed & non-contributory. Major Childhood Illnesses: reports: denies history Cardiovascular: reports: HTN, hyperlipidemia Neurological: reports: CVA Psychiatric: reports: psychiatric problems Endocrine/Immune: reports: Diabetes - PRIOR SURGERIES/PROCEDURES Surgical/Procedure History: reports: orthopedic (extremity) (R leg) - IMMUNIZATION STATUS Childhood Immunizations: See Nurse Assessment Flu Vaccine: See Nurse Assessment - FAMILY HISTORY Family History: reviewed, not pertinent - SOCIAL HISTORY Smoking: cigarettes Provider spent 3-5 mins advising pt. on dangers of tobacco.: Discussed manners to quit use, and f/u contacts for add'l counseling. Alcohol Use Frequency: never Living Situation: family <ReeseEvamonica Mohan - Last Filed: 11/22/18 21:11> Physical Exam-General - PHYSICAL EXAM-ADULT Initial Vital Signs Reviewed: Yes - CONSTITUTIONAL General Appearance: appears well, alert, no apparent distress - EYES Eyes: PERRL/EOMI - HEAD, EARS, NOSE, MOUTH & THROAT HENMT: normal ENT inspection - NECK Neck: non-tender, full range of motion, supple, normal inspection - RESPIRATORY Respiratory: wheezing, increased rate (26) - CARDIOVASCULAR Cardiovascular: tachycardia (107) - GASTROINTESTINAL (ABDOMEN) Abdominal Exam: soft - LYMPHATIC Lymphatic: no adenopathy - MUSCULOSKELETAL Back Exam: normal inspection Extremity: normal range of motion, non-tender, normal gait, normal inspection - SKIN Integumentary: normal color, warm/dry - NEUROLOGIC Neurologic: grossly normal - PSYCHIATRIC Psych/Mental Status: normal mood/affect, normal thought content, normal thought process, oriented x 3 <Eva Leigh - Last Filed: 11/22/18 21:11> Progress - PLAN OF CARE/RESULTS Progress/Plan/Lab Results: Vital Signs - 8 hr 11/22/18 18:05 11/22/18 19:05 Temperature 98.9 F Pulse Rate 107 H 107 H Respiratory Rate 26 H 26 H Blood Pressure 127/84 O2 Sat by Pulse Oximetry 96 96 Laboratory Results - last 24 hr 11/22/18 11/22/18 11/22/18 18:38 18:38 18:38 WBC 22.38 H RBC 3.83 L Hgb 10.8 L Hct 32.6 L MCV 85.1 MCH 28.2 MCHC 33.1 RDW Std Deviation 17.8 H Plt Count 395 MPV 8.7 Immature Gran % (Auto) 1.4 H Neut % (Auto) 76.3 H Lymph % (Auto) 4.4 L [place] % (Auto) 17.6 H Eos % (Auto) 0.2 Baso % (Auto) 0.1 Immature Gran # (Auto) 0.32 H Neut # (Auto) 17.07 H Lymph # (Auto) 0.99 L Oxford # (Auto) 3.93 H Eos # (Auto) 0.05 Baso # (Auto) 0.02 PT 15.1 INR 1.18 PTT (Actin FS) 32.4 Sodium 128 L Potassium 3.9 Chloride 93 L Carbon Dioxide 22 L Anion Gap 13 BUN 25 H Creatinine 1.1 Estimated GFR/1.73 m2 > 60 BUN/Creatinine Ratio 23 Glucose 98 Calculated Osmolality 261 Calcium 7.6 L Total Bilirubin 0.49 AST 10 ALT 9 L Alkaline Phosphatase 53 Creatine Kinase 25 Troponin T Total Protein 4.7 L Albumin 3.0 L Globulin 1.7 Albumin/Globulin Ratio 1.8 Plasma Lactate Urine Source 11/22/18 11/22/18 11/22/18 18:38 18:38 19:04 WBC RBC Hgb Hct MCV MCH MCHC RDW Std Deviation Plt Count MPV Immature Gran % (Auto) Neut % (Auto) Lymph % (Auto) Oxford % (Auto) Eos % (Auto) Baso % (Auto) Immature Gran # (Auto) Neut # (Auto) Lymph # (Auto) Oxford # (Auto) Eos # (Auto) Baso # (Auto) PT INR PTT (Actin FS) Sodium Potassium Chloride Carbon Dioxide Anion Gap BUN Creatinine Estimated GFR/1.73 m2 BUN/Creatinine Ratio Glucose Calculated Osmolality Calcium Total Bilirubin AST ALT Alkaline Phosphatase Creatine Kinase Troponin T < 0.010 Total Protein Albumin Globulin Albumin/Globulin Ratio Plasma Lactate 1.4 Urine Source CLEAN CATCH Orders Category Date Time Status Cardiac Monitoring DIRECTED Care 11/22/18 18:15 Active IV Insertion ORDERED Care 11/22/18 18:15 Completed Notify MD of + Sepsis Screen NOW Care 11/22/18 18:15 Active Notify Physician As Ordered Care 11/22/18 18:15 Active CHEST-1 VIEW [RAD] Stat Exams 11/22/18 18:15 Completed BLOOD CULTURE [BLDCUL] Stat Lab 11/22/18 18:38 Results CBC WITH DIFF [HEME] Stat Lab 11/22/18 18:38 Completed CK PROFILE [SP CHEM] Stat Lab 11/22/18 18:38 Completed COMPREHENSIVE METABOLIC PANEL [CHEM] Stat Lab 11/22/18 18:38 Completed LACTATE, PLASMA [CHEM] Lab 11/22/18 21:15 Uncollected LACTATE, PLASMA [CHEM] Lab 11/23/18 00:15 Uncollected LACTATE, PLASMA [CHEM] Q3H Lab 11/22/18 18:38 Completed PROTIME WITH INR [COAG] Stat Lab 11/22/18 18:38 Completed PTT [COAG] Stat Lab 11/22/18 18:38 Completed TROPONIN T Stat Lab 11/22/18 18:38 Completed URINALYSIS W/POSS RFLX CULT [URINALYSIS] Stat Lab 11/22/18 19:04 Results Albuterol 2.5MG/Ipratrop 0.5MG [Duoneb (A & A)] Med 11/22/18 18:37 Discontinued 3 ml INH NOW ONE Budesonide [Pulmicort] Med 11/22/18 18:37 Discontinued 0.5 mg INH NOW ONE Methylprednisolone Sod Succ [Solu-Medrol] Med 11/22/18 18:40 Discontinued 125 mg IV NOW ONE Aerosol Treatments Routine Oth 11/22/18 18:37 Active Aerosol Treatments Stat Oth 11/22/18 18:37 Active Oxygen Device Stat Oth 11/22/18 18:15 Active Result Diagrams: 11/22/18 18:38 11/22/18 18:38 - REASSESSMENT Reassessment #1 Time Reassessed: 19:26 Status: improving (slight improvement with neb. treatment. No breath sounds at left base. Egophoney negative) <Keith Coy. - Last Filed: 11/22/18 21:08> - PLAN OF CARE/RESULTS Progress/Plan/Lab Results: Vital Signs - 8 hr 11/22/18 18:05 Temperature 98.9 F Pulse Rate 107 H Respiratory Rate 26 H Blood Pressure 127/84 O2 Sat by Pulse Oximetry 96 Orders Category Date Time Status Cardiac Monitoring DIRECTED Care 11/22/18 18:15 Active IV Insertion ORDERED Care 11/22/18 18:15 Active Notify MD of + Sepsis Screen NOW Care 11/22/18 18:15 Active Notify Physician As Ordered Care 11/22/18 18:15 Active CHEST-1 VIEW [RAD] Stat Exams 11/22/18 18:15 Taken BLOOD CULTURE [BLDCUL] Stat Lab 11/22/18 18:15 Uncollected CBC WITH DIFF [HEME] Stat Lab 11/22/18 18:15 Uncollected CK PROFILE [SP CHEM] Stat Lab 11/22/18 18:15 Uncollected COMPREHENSIVE METABOLIC PANEL [CHEM] Stat Lab 11/22/18 18:15 Uncollected LACTATE, PLASMA [CHEM] Q3H Lab 11/22/18 18:15 Uncollected LACTATE, PLASMA [CHEM] Q3H Lab 11/22/18 21:15 Uncollected LACTATE, PLASMA [CHEM] Q3H Lab 11/23/18 00:15 Uncollected PROTIME WITH INR [COAG] Stat Lab 11/22/18 18:15 Uncollected PTT [COAG] Stat Lab 11/22/18 18:15 Uncollected TROPONIN T Stat Lab 11/22/18 18:15 Uncollected URINALYSIS W/POSS RFLX CULT [URINALYSIS] Stat Lab 11/22/18 18:15 Uncollected Oxygen Device Stat Oth 11/22/18 18:15 Active Result Diagrams: 11/22/18 18:38 11/22/18 18:38 - XRAY 1 XRAY: Bilateral XRAY Study: Chest Impression: Abnormal (EXAM: CHEST-1 VIEW HISTORY: pna last month TECHNIQUE: Chest single view COMPARISON: 11/03/2018 FINDINGS: There is a moderate to large left-sided pleural effusion. This has increased in size since the prior exam. There is left atelectasis and there may be underlying pneumonia. The right lung is well expanded and clear. No pulmonary edema. IMPRESSION: Left pleural effusion with atelectasis and possibly underlying pneumonia. Electronically signed by Adam Medina 11/22/2018 6:55 PM 11/22/181854 Interpreting Physician: Adam Medina MD Dictated Date/Time: 11/22/181853 cc: Eva Leigh MD; Rajeev Machado MD) - CONSULTS/PCP/HOSPITALIST Notification #1 *Consult/PCP/Hospitalist*: Junaid Time Discussed: 20:23 Reason/Comments: will admit pt. Consult Disposition: Admit <Eva Leigh - Last Filed: 11/22/18 21:11> Departure - Departure Date of Disposition Decision: 11/22/18 Time of Disposition Decision: 21:08 Certified Medical Emergency: Emergent - Critical Care Note This patient required my direct & personal management of CC.: Yes Total Time (mins): 32 Critical Care Statement: This patient required my direct personal management to treat or rule out processes, the absence of which, could potentiallly result in sudden, clinically significant life or limb threatening deterioration. <Keith Coy - Last Filed: 11/22/18 21:08> <Eva Leigh - Last Filed: 11/22/18 21:11> - Departure DIAGNOSIS: Pneumonia, Hyponatremia, COPD (chronic obstructive pulmonary disease) Disposition: ADMITTED INPATIENT 09 Condition: Serious Referrals and Follow-Ups: Rajeev Machado MD [Primary Care Provider] - Attestation - Physician/ KARTHIKEYAN Attestation Patient care was provided by Advanced Practice Provider:: No The physician spent face to face time with patient:: Yes Advanced Practice Provider documentation review:: Supervising physician onsite and consulted in the evaluation and care of this patient. The physician did have a face to face encounter with the patient. <Keith Coy - Last Filed: 11/22/18 21:08> - Physician/ KARTHIKEYAN Attestation Patient care was provided by Advanced Practice Provider:: No The physician spent face to face time with patient:: Yes Advanced Practice Provider documentation review:: Supervising physician onsite and consulted in the evaluation and care of this patient. The physician did have a face to face encounter with the patient. <Eva Leigh - Last Filed: 11/22/18 21:11> This chart was documented by the indicated scribe, (Vira Gordon Scribe) and accurately reflects the services I performed and decisions made by ny, Eva Leigh MD, as attested by the provider's signature.
[2018-11-25 16:35] LABS: AMYLASE BODY FLUID 23 U/L; GLUCOSE BODY FLUID 127 mg/dL
[2018-11-25 16:36] LABS: TOTAL PROT BODY FLUID 2.9 g/dL
[2018-11-25 16:51] LABS: SPECIMEN PLEURAL FLUID
[2018-11-25 17:00] LABS: LDH BODY FLUID 245 U/L
[2018-11-25 18:18] LABS: BODY FLUID SOURCE PLEURAL FLUID; WBC BF 4638 /cumm
[2018-11-25 18:21] LABS: POLYS 97 %
[2018-11-25 18:22] LABS: MONOS 3 %
[2018-11-25] MEDS: SAPHRIS SL SCH (21:40)
[2018-11-25] MEDS: ZOCOR PO SCH (21:40)
[2018-11-25] MEDS: SOLU-MEDROL IV SCH (21:41)
[2018-11-26] MEDS: ZOSYN 3.375 GM in NS 50 ML IV SCH ×4 (02:16→20:27)
[2018-11-26] MEDS: DUONEB (A & A) INH SCH ×6 (03:52→23:10)
[2018-11-26 06:13] LABS: AGAP 12; BUN 25 mg/dL (8-22); C REACTIVE PROT QUANT 81.21 mg/L (0.00-5.00); CALCIUM 8.3 mg/dL (8.8-10.2); CHLORIDE 99 mmol/L (98-107); COSMO 292; CREATININE 1.1 mg/dL (0.7-1.2); ESTIMATED GFR > 60; GLUCOSE 212 mg/dL (70-104); MAGNESIUM 1.4 mg/dL (1.5-2.7); POTASSIUM 4.4 mmol/L (3.5-5.1); SODIUM 141 mmol/L (136-145); TCO2 30 mmol/L (25-35)
[2018-11-26 06:14] LABS: EOS# 0.03 X1000 (0.0-0.7); EOS% 0.4 % (0.0-10.0); HEMATOCRIT 28.4 % (42.0-52.0); HEMOGLOBIN 8.9 g/dL (14.0-18.0); IMM GRAN# 0.02 X1000 (0.0-0.04); IMM GRAN% 0.3 % (0.0-0.5); LYMPH# 0.38 X1000 (1.2-3.4); LYMPH% 4.9 % (20.5-51.1); MCH 27.2 PG (27-31); MCHC 31.3 g/dL (33-37); MCV 86.9 FL (81-99); MONO# 0.24 X1000 (0.11-0.59); MONO% 3.1 % (1.7-9.3); MPV 8.9 FL (7.4-10.4); NEUT# 7.13 X1000 (1.4-6.5); NEUT% 91.3 % (42.2-75.2); PLT 455 X1000 (130-400); RBC 3.27 XMIL (4.7-6.1); RDW 17.6 % (11.5-14.5)
[2018-11-26] MEDS: HUMALOG SUBQ SCH ×7 (06:50→20:29)
[2018-11-26] MEDS: PRILOSEC PO SCH (06:50)
[2018-11-26 08:41] LABS: SED RATE 130 mm/hr (0-15)
[2018-11-26] MEDS: MAGNESIUM SULFATE 2 GM/S.W.I. 2 GM/50 ML IVPB IV SCH ×2 (08:44→11:46)
[2018-11-26] MEDS: LASIX IV SCH ×2 (08:46→20:16)
[2018-11-26] MEDS: CATAPRES PO SCH ×4 (08:46→17:13)
[2018-11-26] MEDS: PRINIVIL PO SCH (08:46)
[2018-11-26] MEDS: TOPROL XL PO SCH ×2 (08:46→20:16)
[2018-11-26] MEDS: NORVASC PO SCH (08:46)
[2018-11-26] MEDS: LANTUS INSULIN SUBQ SCH (08:47)
--- NOTE | 2018-11-26 10:56 | PROGRESS NOTE ---
DATE: 11/26/2018 INTERVAL HISTORY: Mr. Newman underwent ultrasound-guided thoracentesis with removal of about 1.5 L of pleural fluid from his left pleural cavity, which he tolerated well. Post procedure chest x- ray did not have any evidence of pneumothorax. SUBJECTIVE: He is feeling fine. Denies any complaints. We discussed about his course, and I answered all of his questions. VITALS: Temperature 97.7 degrees, pulse 83, respiratory rate 18, blood pressure 138/75. He is saturating 98% on 1 to 2 L nasal cannula. PHYSICAL EXAMINATION: General: He does not appear in any acute distress. HEENT: Oral cavity is moist. There are no tongue fibroma which were cauterized on last admission. Lungs: He still has decreased air entry on pretty much entire left hemithorax, though I could appreciate breath sounds on left suprascapular region today, which were not present before thoracentesis. Adequate air entry on right hemithorax. No wheeze or rhonchi. Cardiovascular: S1, S2 normal. No murmur, rub, or gallop. Abdomen: Soft, nontender. No lower extremity edema. Skin: He has healing skin lesions of lupus on posterior aspect of the right heel, right leg, and center of the back. Lot of other lesions have healed. LABORATORY: Input and output suggests -2 L yesterday. Since admission, he is -10 L though it is not charted appropriately it seems. Labs suggestive of normocytic anemia thrombocytosis. His sedimentation rate is actually high. His kidney function is stable. Hyperglycemia in acceptable range. Hypomagnesemia is being repleted. His C-reactive protein is decreasing. Pleural fluid suggests more than 4000 WBCs with Castro nuclear morphology and exudative character. ASSESSMENT AND PLAN: 1. Sepsis and acute hypoxic respiratory failure due to left lower lobe pneumonia and left lung recurrent pleural effusion now loculated, likely because of not taking prednisone for 10 days after discharge from rehab with concern for parapneumonic effusion as well. Continue intravenous Zosyn, intravenous Lasix and intravenous steroids. Follow up pleural fluid culture. 2. Hydralazine induced systemic lupus. Continue current dose of intravenous methylprednisolone, and wound care for skin ulcerated lesions. I will follow up with inflammatory markers as needed. 3. Others: His acute kidney injury on presentation is stable; continue amlodipine, metoprolol, clonidine and lisinopril for essential hypertension; glargine mealtime insulin and sliding scale insulin for his hyperglycemia, which is likely steroid induced; Saphris for history of mood disorder and psychosis; enoxaparin for deep venous thrombosis prophylaxis; omeprazole for GERD prophylaxis. DISPOSITION: The patient appears to be hemodynamically stable. My plan is to transfer him to routine medical floor. Plan of care discussed with him. All of his questions answered. Yesterday, I had discussed his plan of care with his mother at bedside, who works for the hospital. cc: Magnus Fraga MD
[2018-11-26] MEDS ORDERED: ZOSYN ONE (20:09)
[2018-11-26] MEDS: SOLU-MEDROL IV SCH (20:16)
[2018-11-26] MEDS: ZOCOR PO SCH (20:16)
[2018-11-26] MEDS: SAPHRIS SL SCH (21:05)
[2018-11-27] MEDS: ZOSYN 3.375 GM in NS 50 ML IV SCH ×4 (02:00→20:15)
[2018-11-27] MEDS: DUONEB (A & A) INH SCH ×5 (03:46→20:12)
[2018-11-27] MEDS: PRILOSEC PO SCH (06:05)
[2018-11-27] MEDS: HUMALOG SUBQ SCH ×7 (06:09→21:05)
[2018-11-27] MEDS: LASIX IV SCH ×2 (08:22→20:15)
[2018-11-27] MEDS: NORVASC PO SCH (08:23)
[2018-11-27] MEDS: TOPROL XL PO SCH ×2 (08:23→20:15)
[2018-11-27] MEDS: PRINIVIL PO SCH (08:23)
[2018-11-27] MEDS: LANTUS INSULIN SUBQ SCH (08:24)
[2018-11-27] MEDS: CATAPRES PO SCH ×3 (08:34→16:40)
--- NOTE | 2018-11-27 17:50 | PROGRESS NOTE ---
DATE: 11/27/2018 INTERVAL HISTORY: Patient's dyspnea is nearly resolved after thoracentesis. No acute events overnight. No new complaints. REVIEW OF SYSTEMS: Twelve-point review of systems negative except as per interval history. PHYSICAL EXAMINATION: Vital Signs: T-max 98.2, pulse 72, respirations 16, blood pressure 155/79, O2 saturation 98% on 2 L by nasal cannula. General: No acute distress. Vitals as above. HEENT: Normocephalic, atraumatic. Moist mucous membranes. No cervical adenopathy. Cardiovascular: Regular rate and rhythm. No murmurs noted. Pulmonary: Still decreased at both bases, although less than previous. Abdomen: Soft, nontender, nondistended. Bowel sounds positive. Extremities: Peripheral pulses intact. No clubbing, cyanosis, or edema. Neurologic: Cranial nerves grossly intact. No focal deficits. Psychiatric: Normal mood and affect. Cooperative and conversant. Skin: Healing scabs on center back, right heel, right leg. ASSESSMENT AND PLAN: 1. Acute hypoxic respiratory failure, pneumonia, sepsis, and pleural effusion. The patient's symptoms are much improved after thoracentesis of 1.5 L. Pleural study shows exudative effusion with significant number of neutrophils and low pH, but normal glucose. Culture from pleural fluid negative. Would normally be concerned for infected parapneumonic effusion or empyema, but given history of drug-induced lupus, this may be related to that. We will see what Pulmonology thinks. On antibiotics with Zosyn. Leukocytosis resolved on last check. Oxygen requirements essentially none at this point. Sepsis resolved. On steroids for his drug-induced lupus. Continue to monitor 1 more day, but if he continues to improve, may be able to discharge home in the near future. 2. Hydralazine-induced lupus. Continue steroids. Will wean dose. Will plan on discharging on oral prednisone, likely for a prolonged period. May be the source of his exudative effusion. But we will see what Pulmonology thinks. 3. Elevated creatinine. Patient with mildly elevated creatinine which has come back down to what is usually his baseline. It was 1.3 at the highest, down to 1.1 now. 4. Hypertension. Some moderate elevations on home lisinopril, clonidine, Norvasc, Lasix. Will go ahead and restart his home Toprol and monitor. 5. Diabetes. Acceptable control on current regimen. Monitor. 6. Chronic obstructive pulmonary disease. No wheezing currently. 7. Psychiatric issues. Continue home medication.
[2018-11-27] MEDS: SAPHRIS SL SCH (20:15)
[2018-11-27] MEDS: ZOCOR PO SCH (20:15)
[2018-11-27] MEDS: SOLU-MEDROL IV SCH (20:15)
[2018-11-28] MEDS: ZOSYN 3.375 GM in NS 50 ML IV SCH ×4 (01:55→20:25)
[2018-11-28] MEDS: DUONEB (A & A) INH SCH ×6 (03:19→23:30)
[2018-11-28] MEDS: PRILOSEC PO SCH (06:00)
--- NOTE | 2018-11-28 06:22 | Diag Imaging Result Doc PS360 ---
EXAM: CHEST-1 VIEW HISTORY: SOB TECHNIQUE: Portable chest COMPARISON: 11/25/2018 FINDINGS: The lungs are well expanded. The heart is not enlarged. The vessels are not distended. There is a small left pleural effusion. Infiltrates and atelectasis in the left base are less pronounced. IMPRESSION: Mild interval improvement. Electronically signed by Adam Medina 11/28/2018 6:20 AM
[2018-11-28] MEDS: HUMALOG SUBQ SCH ×7 (06:27→20:27)
[2018-11-28 08:13] LABS: BASO# 0.01 X1000 (0.0-0.2); BASO% 0.1 % (0.0-0.8); HEMATOCRIT 31.2 % (42.0-52.0); HEMOGLOBIN 9.9 g/dL (14.0-18.0); IMM GRAN# 0.04 X1000 (0.0-0.04); IMM GRAN% 0.4 % (0.0-0.5); LYMPH% 8.5 % (20.5-51.1); MCH 27.3 PG (27-31); MCHC 31.7 g/dL (33-37); MCV 86.2 FL (81-99); MONO# 0.71 X1000 (0.11-0.59); MONO% 6.7 % (1.7-9.3); MPV 8.3 FL (7.4-10.4); NEUT# 8.95 X1000 (1.4-6.5); NEUT% 84.3 % (42.2-75.2); PLT 619 X1000 (130-400); RBC 3.62 XMIL (4.7-6.1); RDW 17.2 % (11.5-14.5); WBC 10.61 X1000 (4.8-10.8)
[2018-11-28] MEDS: LANTUS INSULIN SUBQ SCH (08:20)
[2018-11-28] MEDS: LOVENOX SUBQ SCH (08:20)
[2018-11-28] MEDS: LASIX IV SCH ×2 (08:22→20:26)
[2018-11-28] MEDS: PRINIVIL PO SCH (08:23)
[2018-11-28] MEDS: NORVASC PO SCH (08:24)
[2018-11-28] MEDS: TOPROL XL PO SCH ×2 (08:24→20:26)
[2018-11-28] MEDS: CATAPRES PO SCH ×3 (08:24→16:25)
[2018-11-28] MEDS: ASPIRIN EC PO SCH (08:24)
[2018-11-28 08:48] LABS: AGAP 14; BUN 27 mg/dL (8-22); CALCIUM 9.1 mg/dL (8.8-10.2); CHLORIDE 97 mmol/L (98-107); COSMO 288; ESTIMATED GFR > 60; GLUCOSE 122 mg/dL (70-104); MAGNESIUM 1.6 mg/dL (1.5-2.7); POTASSIUM 3.3 mmol/L (3.5-5.1); SODIUM 141 mmol/L (136-145); TCO2 30 mmol/L (25-35)
[2018-11-28] MEDS: MIRALAX PO SCH (11:27)
--- NOTE | 2018-11-28 18:08 | PROGRESS NOTE ---
DATE: 11/28/2018 INTERVAL HISTORY: The patient continues to improve. Minimal oxygen requirements and can likely be weaned off oxygen. No obvious recurrence of his pleural effusion so far. No acute events overnight. No new complaints. REVIEW OF SYSTEMS: A 12 point review of systems negative except as per Interval History. LABORATORY DATA: WBC 10.6, hemoglobin 9.9, hematocrit 31.2, platelets 619,000. Sodium 141, potassium 3.3, BUN 27, creatinine 1, glucose 122-221. VITALS: Temperature maximum 98.6 degrees, pulse 81, respirations 16, blood pressure 147/63, O2 saturation 100% on 2 L by nasal cannula. PHYSICAL EXAMINATION: General: No acute distress. Vitals: As above. HEENT: Normocephalic, atraumatic. Moist mucous membranes. No cervical adenopathy. Cardiovascular: Regular rate and rhythm. No murmurs noted. Pulmonary: Slightly decreased breath sounds at bases essentially stable. Abdomen: Soft, nontender, nondistended. Bowel sounds positive. Extremities: Peripheral pulses intact. No clubbing, cyanosis, or edema. Neurologic: Cranial nerves grossly intact. No focal deficits. Psychiatric: Slightly odd affect, but normal mood, cooperative and conversant. Skin: Healing scabs stable. ASSESSMENT AND PLAN: 1. Acute hypoxic respiratory failure, pneumonia, sepsis, pleural effusion. The patient's symptoms much improved after thoracentesis 1.5 L with removed. Should be able to be weaned off oxygen today. Pleural studies exudative, but favor drug-induced lupus rather than infection as cause. Culture negative. On antibiotics with Zosyn. If he is able to be weaned off oxygen and does not appear to have significant recurrence of his effusion on chest x-ray in the morning, then can likely be transitioned to p.o. antibiotics and discharge home. 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 Plan on discharge on oral prednisone likely for a prolonged period. 3. Elevated creatinine. The patient with mildly elevated creatinine on admission at 1.3, which has trended down to 1.1. 4. Hypertension. Still some occasional moderate elevations, but somewhat improved with his home lisinopril clotting Norvasc, Lasix, and Toprol. Monitor for now. 5. Diabetes. Acceptable control on current regimen. Monitor. 6. Chronic obstructive pulmonary disease. No sign of exacerbation at this point. No wheezing currently. 7. Psychiatric issues. Continue home medications.
[2018-11-28] MEDS: SOLU-MEDROL IV SCH (20:26)
[2018-11-28] MEDS: SAPHRIS SL SCH (20:26)
[2018-11-28] MEDS: ZOCOR PO SCH (20:27)
[2018-11-29] MEDS: ZOSYN 3.375 GM in NS 50 ML IV SCH ×2 (02:50→10:25)
[2018-11-29] MEDS: DUONEB (A & A) INH SCH ×2 (03:38→08:41)
--- NOTE | 2018-11-29 06:22 | Diag Imaging Result Doc PS360 ---
EXAM: CHEST-PORTABLE HISTORY: dyspnea TECHNIQUE: Chest single view COMPARISON: 11/28/2018 FINDINGS: The lungs are well expanded except for atelectasis in the left base. The heart is not enlarged. The vessels are not distended. Small left basilar infiltrate. Small left pleural effusion. IMPRESSION: No interval improvement. Electronically signed by Adam Medina 11/29/2018 6:20 AM
[2018-11-29] MEDS: HUMALOG SUBQ SCH ×2 (06:30→06:31)
[2018-11-29 07:43] VITALS: BP 143/72
[2018-11-29 08:33] LABS: BASO# 0.01 X1000 (0.0-0.2); BASO% 0.1 % (0.0-0.8); HEMATOCRIT 34.9 % (42.0-52.0); HEMOGLOBIN 11.1 g/dL (14.0-18.0); IMM GRAN# 0.09 X1000 (0.0-0.04); IMM GRAN% 0.7 % (0.0-0.5); LYMPH# 0.97 X1000 (1.2-3.4); LYMPH% 7.3 % (20.5-51.1); MCH 27.1 PG (27-31); MCHC 31.8 g/dL (33-37); MCV 85.1 FL (81-99); MONO# 0.76 X1000 (0.11-0.59); MONO% 5.8 % (1.7-9.3); MPV 8.1 FL (7.4-10.4); NEUT# 11.38 X1000 (1.4-6.5); NEUT% 86.1 % (42.2-75.2); PLT 706 X1000 (130-400); RDW 17.3 % (11.5-14.5); WBC 13.21 X1000 (4.8-10.8)
[2018-11-29 08:43] LABS: AGAP 14; BUN 30 mg/dL (8-22); CALCIUM 9.7 mg/dL (8.8-10.2); CHLORIDE 94 mmol/L (98-107); COSMO 286; CREATININE 1.1 mg/dL (0.7-1.2); ESTIMATED GFR > 60; GLUCOSE 107 mg/dL (70-104); POTASSIUM 3.6 mmol/L (3.5-5.1); SODIUM 140 mmol/L (136-145); TCO2 32 mmol/L (25-35)
[2018-11-29 09:15] LABS: ANISOCYTOSIS 1+; BANDS 1 % (0-1); LARGE PLATELETS OCCASIONAL; LYMPHS 13 % (21-51); MONO 3 % (1-9); SEGS 82 % (42-75)
[2018-11-29] MEDS: LANTUS INSULIN SUBQ SCH (10:22)
[2018-11-29] MEDS: PRINIVIL PO SCH (10:24)
[2018-11-29] MEDS: TOPROL XL PO SCH (10:24)
[2018-11-29] MEDS: MIRALAX PO SCH (10:25)
[2018-11-29] MEDS: ASPIRIN EC PO SCH (10:25)
[2018-11-29] MEDS: LOVENOX SUBQ SCH (10:25)
[2018-11-29] MEDS: LASIX IV SCH (10:25)
[2018-11-29] MEDS: NORVASC PO SCH (10:25)
[2018-11-29] MEDS: CATAPRES PO SCH (10:42)
[2018-11-29] MEDS: PRILOSEC PO SCH (10:42)
--- NOTE | 2018-11-30 21:23 | DISCHARGE SUMMARY ---
ADMISSION DATE: 11/22/2018 DISCHARGE DATE: 11/29/2018 CONSULTS: Pulmonology, Dr. Wilcox. PROCEDURES: Ultrasound-guided thoracentesis performed on 11/25 with 1.5 L of serous fluid withdrawn from the left pleural space. PERTINENT STUDIES: Chest CT on 11/23 showing loculated large left pleural effusion, moderate right pleural effusion. Bilateral atelectasis and infiltrates in left lower lung, most consistent with pneumonia. DISCHARGE CHEST X-RAY: Lungs well expanded except for atelectasis in the left base, small left basilar infiltrate, small left pleural effusion, pleural fluid with pH 7.0. WBC is 4638, 97% polynuclear WBC. Glucose 127, total protein 2.9, LDH 245, amylase 23. Color marlo, clear. Pleural fluid culture negative. Serum total protein 5.5. Serum LDH 123. DISCHARGE DIAGNOSES: 1. Acute hypoxic respiratory failure. 2. Pneumonia with sepsis. 3. Large left pleural effusion. 4. Hydralazine induced lupus. 5. Hypertension. 6. Diabetes. 7. COPD. 8. Psychiatric issues. HOSPITAL COURSE: The patient presented initially with cough and fever. He had been in the hospital previously and been diagnosed with hydralazine-induced lupus. He had been discharged to rehab but had increasing dyspnea and low-grade fever. On initial evaluation here, large loculated left-sided effusion was identified and pneumonia was favored. He was initially placed on antibiotics with Zosyn and Levaquin. He was later transitioned to oral Levaquin alone. He never had any stephanie fevers, but did have significant leukocytosis with initial white count of 22.3 which trended down with treatment of his groin infection down to 7.8. Ultrasound guided thoracentesis was performed on the large left loculated left-sided effusion. They removed approximately 1.5 L. It was normal in color and fairly clear. Fluid studies were somewhat concerning for parapneumonic effusion but almost the entire effusion had been drained in the thoracentesis, culture was negative, and eventually it was favored that the effusion was related to serositis from his hydralazine induced lupus rather than true parapneumonic. Initially patient was requiring oxygen to keep his saturations in the low 90s, but as his oxygenation improved he was able to be weaned off oxygen and was saturating well on room air at the time of his discharge. There was no evidence of COPD exacerbation and his chronic blood pressure and diabetes were largely stable during this admission. He does have slight elevation in his creatinine to 1.3, but rapidly returned to his baseline of 1.1 with treatment with antibiotics and fluids. The patient was maintained on high-dose steroids during this hospitalization for the drug induced lupus related serositis. On discharge, he was transitioned to oral prednisone and Mobic. DISCHARGE VITALS: Temperature 98.2, pulse 77, respirations 18, blood pressure 136/68, O2 saturation 97% on room air. DISCHARGE DIET: Diabetic low salt. DISCHARGE MEDICATIONS: 1. Saphris 10 mg sublingual at bedtime. 2. Norvasc 10 mg p.o. daily. 3. Aspirin 81 mg daily. 4. Clonidine 0.1 mg 1 tab p.o. t.i.d. 5. Januvia 100 mg p.o. daily. 6. Lisinopril 20 mg p.o. daily. 7. Metformin 1000 mg 1 tab b.i.d. 8. Omeprazole 20 mg p.o. daily. 9. Toprol-XL 100 mg p.o. b.i.d. 10. Simvastatin 40 mg p.o. at bedtime. 11. Lantus Pen 15 units subcutaneously daily. 12. MiraLAX 17 grams p.o. daily as needed. 13. Mobic 15 mg p.o. daily. 14. Prednisone taper 20 mg for 2 weeks, then 10 mg for 2 weeks then 5 mg for 2 weeks. 15. Tylenol 650 mg p.o. q. 6 h. p.r.n. FOLLOW UP PLAN: Patient discharging home on oral Levaquin, oral steroids. Follow up with PCP and pulmonology. May require referral to Rheumatology if his drug induced lupus fails to resolve with withdrawal of hydralazine, steroids, NSAID. Greater than 30 minutes spent arranging discharge and counseling patient. MTDD
== END 2018-11-29 13:05 | disposition home health service (06) | DRG 871 ==
LOC: ED 18:02 → 3S 21:41 → SUATTDRO 21:41 → 1N 11-26 13:37
PROVIDERS: ATTEND Internal Medicine